=== PATIENT | male | born 1935 | race Caucasian/White ===

== ENCOUNTER 2018-05-14 11:43 | Inpatient (IN) | payer MEDICAID ==
[~2018-05-14] VITALS: Ht 152.4 cm; Wt 54.4 kg
[2018-05-14] VITALS (16 sets, daily range): BP systolic 66–134
--- NOTE | 2018-05-14 11:45 | NUR ---
RT NOTES 1145 TRACH PT CAME FROM [facility]. CHIEF COMPLAIN SOB. RT GOT REPORT FROM EMS VENT SETTINGS AC 16, VT 450, PEEP 5, 40% FIO2. SINCE PT FEELING SOB, ADJUSTED FIO2 TO 50%. WILL TITRATE FIO2 SOP2 GETS BETTER. WILL MONITOR PT.
--- NOTE | 2018-05-14 11:45 | NUR ---
Placed in room 1. Placed on director of cardiac cath lab, blood pressure machine and pulse oximeter. To gown for exam. Side rails up.
[2018-05-14] MEDS ORDERED: NACL 0.9% 1,000 ML IV ONE (11:49)
--- NOTE | 2018-05-14 11:50 | NUR ---
Pt brought in by ambulance, from [facility], presents to ED for sob. Per Paramedics, pt is nonverbal but alert. Patient has a trach inserted with a decreased O2 sat today. Pt's last well known time was this morning at 10:00. Upon arrival, pt's vent settings as follows: AC, RATE 16, TV 450, PEEP 5, FIO2 40%
--- NOTE | 2018-05-14 11:55 | NUR ---
ER Dr. Holden at bedside examining patient.
[2018-05-14] MEDS ORDERED: ONDANSETRON HCL 4 MG/2 ML VIAL IVP ONE (12:00)
[2018-05-14] MEDS ORDERED: MORPHINE 4 MG/ML INJ. SYRINGE IVP ONE (12:00)
[2018-05-14] MEDS ORDERED: CLINDAMYCIN 900 mg/50mL D5W 50 ML IV ONE (12:00)
[2018-05-14] MEDS ORDERED: VANCOMYCIN HCL 1,000 MG in D5W 250 ML IV ONE (12:00)
[2018-05-14] MEDS ORDERED: NS 1000 ML IV.SOLN IV ONE (12:00)
[2018-05-14 12:20] LABS: CHLORIDE 108 mmol/L (98-107); CREATININE 0.98 mg/dL (0.55-1.30); GLUCOSE 141 mg/dL (70-99); POTASSIUM 4.7 mmol/L (3.5-5.1); SODIUM SERUM 148 mmol/L (136-145); UREA NITROGEN, BLOOD 54 mg/dL (8-21)
--- NOTE | 2018-05-14 12:20 | NUR ---
# 16 FR Bailey catheter with use of sterile technique. Immediate return of 250 cc of yellow urine noted. Bedside drainage bag placed below level of bladder. Urine sample collected and sent to lab. Pt tolerated procedure well.
[2018-05-14 12:21] LABS: HEMOGLOBIN 9.4 g/dL (14.0-18.0); MEAN CORPUSCULAR HEMOGLOBIN 31 pg (27-31); MEAN CORPUSCULAR HGB CONC 32 % (32-36); MEAN CORPUSCULAR VOLUME 94 fL (79.0-98.0); PLATELET COUNT (AUTO) 394 K/uL (130-430); RED BLOOD CELL COUNT(AUTO) 3.08 MIL/uL (4.2-6.2)
[2018-05-14 12:23] LABS: INR 1.1 (0.80-1.20); PROTHROMBIN TIME 11.1 SECS (9.5-12.5); WHITE BLOOD COUNT (AUTO) 42.1 K/uL (4.8-10.8)
[2018-05-14 12:26] LABS: ALANINE AMINOTRANSFERASE 50 U/L (12-78); ALBUMIN 1.4 g/dL (3.4-4.8); AMYLASE 20 U/L (0-100); ASPARTATE AMINOTRANSFERASE 33 U/L (10-37); LIPASE 52 U/L (73-393); TOTAL BILIRUBIN 0.5 mg/dL (0.0-1.0)
[2018-05-14 12:29] LABS: ANION GAP < 3 (5-15); CALCIUM 14.4 mg/dL (8.4-11.0)
[2018-05-14 12:42] LABS: BAND % (MANUAL) 10 % (0-6); BASOPHILS % (MANUAL) 0 % (0-2); EOSINOPHILS % (MANUAL) 0 % (0-7); LYMPHOCYTES % (MANUAL) 1 % (20-46); MONOCYTES % (MANUAL) 4 % (0-11)
[2018-05-14 12:48] LABS: BILIRUBIN,URINE NEGATIVE (NEGATIVE); BLOOD, URINE NEGATIVE (NEGATIVE); COLOR,URINE YELLOW (YELLOW); GLUCOSE,URINE NEGATIVE (NEGATIVE); KETONES,URINE NEGATIVE (NEGATIVE); LEUKOCYTE ESTERASE ,URINE NEGATIVE (NEGATIVE); NITRITE, URINE NEGATIVE (NEGATIVE); PH,URINE 6.5 (5.0-8.0); PROTEIN URINE NEGATIVE (NEGATIVE); UROBILINOGEN,URINE 0.2 (0.2-1.0)
[2018-05-14 12:50] LABS: CLARITY/URINE CLEAR (CLEAR)
[2018-05-14] MEDS ORDERED: PAMIDRONATE DISODIUM 60 MG in NACL 0.9% 1,000 ML IV ONE (13:15)
[2018-05-14] MEDS ORDERED: ONDANSETRON HCL 4 MG/2 ML VIAL IVP PRN (13:15)
[2018-05-14] MEDS: VANCOMYCIN HCL 1,000 MG in NS 250 ML IV ONE ×2 (13:15→15:00)
--- NOTE | 2018-05-14 13:52 | NUR ---
Patient will be admitted to care of Dr. Walters. Admitted to ICU unit. Will go to room 7. Belongings list completed. Summary report printed. Report will be given at bedside. Transfer to ICU via ACLS protocol. Licensed nurse present. IV present no signs or symptoms of infiltration.
[2018-05-14] MEDS: IPRATROPIUM/ALBUTEROL SULFATE 3 ML AMPUL.NEB (DUONEB) INH SCH ×5 (14:00→23:50)
[2018-05-14] MEDS ORDERED: VANCOMYCIN HCL 1000 MG/VIAL IV ONE (14:04)
--- NOTE | 2018-05-14 14:10 | NUR ---
ICU admit Received pt from ER to ICU bed 7 via gurney. Pt obtunded on arrival and does not able to follow instructions. ST rate 102 on monitor. BP 120's at this time. Pt has a 7 portex trach to vent on AC 14 /459/40%/p5. 02 sats mid 80's on these settings. Pt has an open fleshy wound to left side of his neck. This is light pink/whitish in color with globs of fat.
--- NOTE | 2018-05-14 14:58 | NUR ---
CONSULTATION PAGED PRIORITY: ROUTINE REASON FOR CONSULTATION?:DECREASED RENAL FUNCTION WAS CONSULT CALLED:Y PERSON WHO WAS NOTIFIED:LISA CONSULTING PHYSICIAN:FRANCESCA OLIVEIRA DIRECTOR [employer] SPECIALTY:NEPHROLOGY DIRECTOR [employer] PHONE NUMBER:[phone]
[2018-05-14] MEDS: NACL 0.9% 1,000 ML IV SCH (15:00)
--- NOTE | 2018-05-14 15:21 | NUR ---
CONSULTATION PAGED PRIORITY: ROUTINE REASON FOR CONSULTATION?:PNEUMONIA,SEPSIS WAS CONSULT CALLED:Y PERSON WHO WAS NOTIFIED:PRESTON CONSULTING PHYSICIAN:MONET VARGAS BLISTER RUST ERADICATOR SPECIALTY:ID BLISTER RUST ERADICATOR PHONE NUMBER:[phone]
--- NOTE | 2018-05-14 15:26 | NUR ---
RT NOTES DECREASED RESPIRATORY TO 12. INCREASED FIO2 TO 55%. PER DR. LOPEZ. RN JESUS MANUEL MADE AWARE. WILL CONTINUE MONITORING.
--- NOTE | 2018-05-14 15:48 | NUR ---
IV SITE STARTED ON RIGHT FA, #20, SL, INTACT AND PATENT.
--- NOTE | 2018-05-14 17:41 | NUR ---
Sputum culture Spoke with Lab Med technologist regarding continued cancelling of sputum culture order that we enter. He looked into it and said they would order the test since there was a problem with [facility] self cancelling the test and they do not know why.
[2018-05-14] MEDS ORDERED: NOREPINEPHRINE 4 MG/4 ML VIAL IV ONE (17:51)
--- NOTE | 2018-05-14 18:00 | NUR ---
I witnessed Levophed started at 2mcg
--- NOTE | 2018-05-14 18:10 | NUR ---
I witnessed Levophed is increased to 4mcg
[2018-05-14] MEDS: PIPERACILLIN/TAZO 3.375 GM in NS 50 ML IV SCH (18:14)
[2018-05-14] MEDS: NOREPINEPHRINE BITARTRATE 4 MG in D5W 246 ML IV PRN (18:38)
--- NOTE | 2018-05-14 19:15 | NUR ---
BP 82/47. I witnessed Levophed is increased to 6mcg
--- NOTE | 2018-05-14 19:30 | NUR ---
Initial assessment Received patient in bed with eyes close, wont respond to any verbal or tactile stimuli. No respi distress noted. Patient on Trach/Vent, set as ordered. B/p at 101/60 with Levophed drip at 6mcg/min. Wound noted to neck with dark wound bed, small amount of serosanguinous fluid also noted. Multiple wounds noted scattered to yvette buttocks and sacrum, dressing intact. Fluid filled blister is also noted to L heel. Will closely monitor.
[2018-05-14] MEDS: FLUCONAZOLE 200 mg/ NS 100 ML IV SCH (20:12)
--- NOTE | 2018-05-14 22:15 | NUR ---
Midline inserted Shahriar RN inserted Midline. Order was to insert PICC line but chest part is block as per PICC nurse. R Midline was inserted instead.
[2018-05-15] VITALS (31 sets, daily range): BP systolic 91–141
[2018-05-15] MEDS: PIPERACILLIN/TAZO 3.375 GM in NS 50 ML IV SCH ×4 (00:13→18:48)
--- NOTE | 2018-05-15 01:00 | NUR ---
Malu care Patient had a small amount of soft stool, partial bed bath perform. Patient went back to sleep.
[2018-05-15] MEDS: IPRATROPIUM/ALBUTEROL SULFATE 3 ML AMPUL.NEB (DUONEB) INH SCH ×12 (01:54→22:00)
--- NOTE | 2018-05-15 04:15 | NUR ---
Change dressing to neck Change dressing to the neck with Stephanie RT. Tolerated well. Will cont to monitor.
[2018-05-15] MEDS ORDERED: NOREPINEPHRINE 4 MG/4 ML VIAL IV ONE (05:17)
[2018-05-15] MEDS: NOREPINEPHRINE BITARTRATE 4 MG in D5W 246 ML IV PRN ×2 (05:23→21:29)
[2018-05-15] MEDS: NACL 0.9% 1,000 ML IV SCH ×4 (05:29→21:25)
[2018-05-15 05:50] LABS: HEMATOCRIT 25.6 % (36-54); HEMOGLOBIN 8.1 g/dL (14.0-18.0); MEAN CORPUSCULAR HEMOGLOBIN 30 pg (27-31); MEAN CORPUSCULAR HGB CONC 32 % (32-36); MEAN CORPUSCULAR VOLUME 94 fL (79.0-98.0); PLATELET COUNT (AUTO) 323 K/uL (130-430); RED BLOOD CELL COUNT(AUTO) 2.72 MIL/uL (4.2-6.2); RED CELL DISTRIBUTION WIDTH 17.3 % (9.0-15.0)
--- NOTE | 2018-05-15 06:00 | NUR ---
AM care rendered AM care rendered and tolerated well. Patient went back to sleep.
[2018-05-15 06:11] LABS: ANION GAP 2 (5-15); CHLORIDE 113 mmol/L (98-107); CREATININE 0.91 mg/dL (0.55-1.30); GLUCOSE 127 mg/dL (70-99); POTASSIUM 3.8 mmol/L (3.5-5.1); SODIUM SERUM 152 mmol/L (136-145); UREA NITROGEN, BLOOD 39 mg/dL (8-21)
[2018-05-15 06:21] LABS: ALANINE AMINOTRANSFERASE 33 U/L (12-78); ALBUMIN 1.2 g/dL (3.4-4.8); ASPARTATE AMINOTRANSFERASE 22 U/L (10-37); TOTAL BILIRUBIN 0.6 mg/dL (0.0-1.0)
[2018-05-15 06:41] LABS: CALCIUM 13.2 mg/dL (8.4-11.0)
--- NOTE | 2018-05-15 07:20 | NUR ---
RN OPENING NOTES SBAR REPORT RECEIVED AT BEDSIDE BY ENDORSING NURSE. SEE VS FLOW SHEET
[2018-05-15 07:25] LABS: WHITE BLOOD COUNT (AUTO) 35.7 K/uL (4.8-10.8)
--- NOTE | 2018-05-15 07:25 | NUR ---
DR. LOPEZ AT BEDSIDE NEW ORDERS RECEIVED
--- NOTE | 2018-05-15 07:30 | NUR ---
Levophed witness Levophed infusing at 5 mcg/min on pump.
[2018-05-15 08:29] LABS: ATYPICAL LYMPHOCYTES % 0 % (0-0); BAND % (MANUAL) 8 % (0-6); BASOPHILS % (MANUAL) 0 % (0-2); EOSINOPHILS % (MANUAL) 0 % (0-7); LYMPHOCYTES % (MANUAL) 4 % (20-46); MONOCYTES % (MANUAL) 4 % (0-11)
--- NOTE | 2018-05-15 08:30 | NUR ---
DR. MOOER AT BEDSIDE NEW ORDERS RECEIVED
--- NOTE | 2018-05-15 09:00 | NUR ---
CHG BATH PROVIDED
[2018-05-15] MEDS: ENOXAPARIN SODIUM 40 MG/0.4 ML SYRINGE SUBCUT SCH (09:28)
[2018-05-15] MEDS: PANTOPRAZOLE GRANULES PACKET 40 MG GT SCH (09:29)
--- NOTE | 2018-05-15 09:30 | NUR ---
Levophed witness Levophed infusing at 3 mcg/min on pump.
--- NOTE | 2018-05-15 10:44 | NUR ---
Levophed Drip witness Levophed drip increased to 4mcgs/min.
--- NOTE | 2018-05-15 10:51 | NUR ---
Consults Dr. Hudson and Dr. Sow Consults called to both doctors above. Dr. Hudson ENT called back and questions answered. He indicated he didn't know what else he could really offer thept, but he would be in to see him tomorrow.
--- NOTE | 2018-05-15 10:53 | NUR ---
Called pts daughter, Kirstin regarding code status. She is on her way here and will talk to me then.
--- NOTE | 2018-05-15 11:25 | NUR ---
DR. IVY AT BEDSIDE
[2018-05-15] MEDS: VANCOMYCIN HCL 1 GM/NS PREMIX 250 ML IV SCH (12:04)
--- NOTE | 2018-05-15 12:10 | NUR ---
EDUCATION PT'S DAUGHTER, WHO IS A NURSE EDUCATOR, UPDATED ON PLAN OF CARE AT BEDSIDE. THE FAMILY'S GOALS FOR THE PT AND THE POSSIBILITY OF HOSPICE DISCUSSED WITH THE CHARGE NURSE.
[2018-05-15 13:10] LABS: BASOPHILS % (AUTO) 0.1 % (0.0-2.0); EOSINOPHILS % (AUTO) 0.1 % (0.0-4.0); HEMATOCRIT 24.6 % (36-54); HEMOGLOBIN 7.4 g/dL (14.0-18.0); LYMPHOCYTES # (AUTO) 0.4 K/uL (1.0-5.5); LYMPHOCYTES % (AUTO) 1.4 % (20.5-51.5); MEAN CORPUSCULAR HEMOGLOBIN 28 pg (27-31); MEAN CORPUSCULAR HGB CONC 30 % (32-36); MEAN CORPUSCULAR VOLUME 94 fL (79.0-98.0); MONOCYTES # (AUTO) 0.3 K/uL (0.0-1.0); MONOCYTES % (AUTO) 1.1 % (1.7-9.3); NEUTROPHILS # (AUTO) 30.8 K/uL (1.8-7.7); NEUTROPHILS % (AUTO) 97.3 % (40.0-70.0); PLATELET COUNT (AUTO) 277 K/uL (130-430); RED BLOOD CELL COUNT(AUTO) 2.61 MIL/uL (4.2-6.2); RED CELL DISTRIBUTION WIDTH 17.6 % (9.0-15.0)
[2018-05-15 13:17] LABS: WHITE BLOOD COUNT (AUTO) 31.5 K/uL (4.8-10.8)
[2018-05-15] MEDS ORDERED: DILTIAZEM HCL 25 MG/5 ML VIAL ONE (13:29)
--- NOTE | 2018-05-15 13:30 | NUR ---
A-FIB/CARDIZEM PUSH PT CONVERTED TO A-FIB. DR. MOORE CONTACTED, ORDERS RECEIVED INCLUDING AN INITIAL IVP OF CARDIZEM 10mg.
[2018-05-15] MEDS ORDERED: NS 500 ML IV ONE (13:45)
[2018-05-15 14:05] LABS: ALANINE AMINOTRANSFERASE 29 U/L (12-78); ALBUMIN 1.2 g/dL (3.4-4.8); ASPARTATE AMINOTRANSFERASE 19 U/L (10-37); CHLORIDE 115 mmol/L (98-107); CREATININE 0.89 mg/dL (0.55-1.30); GLUCOSE 126 mg/dL (70-99); POTASSIUM 3.4 mmol/L (3.5-5.1); SODIUM SERUM 151 mmol/L (136-145); TOTAL BILIRUBIN 0.7 mg/dL (0.0-1.0); UREA NITROGEN, BLOOD 36 mg/dL (8-21)
[2018-05-15 14:13] LABS: ANION GAP < 3 (5-15); CALCIUM 13.5 mg/dL (8.4-11.0)
[2018-05-15 14:20] LABS: TOTAL IRON BIND. CAPACITY 131 ug/dL (250-450)
[2018-05-15] MEDS ORDERED: DILTIAZEM HCL 25 MG/5 ML VIAL IVP ONE (15:30)
--- NOTE | 2018-05-15 17:00 | NUR ---
wound care/chg bath
--- NOTE | 2018-05-15 18:00 | NUR ---
H&H UPDATE TO DR. LINO MOST RECENT CBC INDICATED PT'S H&H DECREASED TO 7.1/24.6. NOTIFIED, NO NEW ORDERS.
[2018-05-15] MEDS: FLUCONAZOLE 200 mg/ NS 100 ML IV SCH (18:13)
[2018-05-15] MEDS: DILTIAZEM HCL 25 MG/5 ML VIAL IVP PRN (18:48)
--- NOTE | 2018-05-15 19:15 | NUR ---
ENDORSEMENT SBAR REPORT ENDORSED TO RECEIVING RN AT BEDSIDE.
--- NOTE | 2018-05-15 19:20 | NUR ---
OPENING NOTE Patient resting in the bed. No acute distress. Respiration even and unlabored. Trach intact to vent, AC=12, HH=778, FiO2=55%, PEEP=5. G-tube intact, patent, on Jevity 1.2 at 50ml/hr, tolerated well. HOB elevated. Skin warm and dry to touch. Midline intact to KAYLEY, no redness, no swelling, no drainage, covered with clean and dry transparent dressing, infusing Zosyn at this time. Darnell cath intact to TEODORO, no redness, no swelling, no drainage, covered with clean and dry dressing, on Levophed at 4mcg/min. F/C intact, drain gravity with yellow urine. Safety measure maintained. Bed locked in low position, side rails up. Call light within reached. Continue to monitor.
--- NOTE | 2018-05-15 20:30 | NUR ---
BP=85/40 Noted patient's BP=85/40, increased Levophed from 4mcg/min to 5mcg/min, witness by charge nurse Alexa. Patient resting in the bed. No acute distress. Trach intact to vent. G-tube intact, patent, no residual. Continue on G-tube feeding. HOB elevated. F/C intact, drain gravity. Safety measure maintained. Call light within reached. Bed locked in low position, side rails up. Continue to monitor.
--- NOTE | 2018-05-15 23:00 | NUR ---
ROUND Patient resting in the bed with eyes closed. No acute distress. Trach intact to vent. Midline intact, continue on IVF infusing well. Darnell cath intact and on Levophed infusing well. DF/C intact, drain gravity. Safety measure maintained. Call light within reached. Bed locked in low position, side rails up. Continue to monitor.
[2018-05-16] VITALS (33 sets, daily range): BP systolic 105–140
[2018-05-16] MEDS: PIPERACILLIN/TAZO 3.375 GM in NS 50 ML IV SCH ×5 (00:17→23:47)
[2018-05-16] MEDS: IPRATROPIUM/ALBUTEROL SULFATE 3 ML AMPUL.NEB (DUONEB) INH SCH ×6 (02:00→19:39)
--- NOTE | 2018-05-16 03:25 | NUR ---
ROUND Patient resting in the bed with eyes closed. No acute distress. Respiration even and unlabored. Trach intact to vent. Midline intact, continue on IVF infusing well. Darnell cath intact and on Levophed infusing well. F/C intact, drain gravity. Safety measure maintained. Call light within reached. Bed locked in low position, side rails up. Continue to monitor.
[2018-05-16] MEDS: NACL 0.9% 1,000 ML IV SCH (04:43)
[2018-05-16 06:46] LABS: ANION GAP 5 (5-15); CHLORIDE 117 mmol/L (98-107); CREATININE 0.82 mg/dL (0.55-1.30); GLUCOSE 153 mg/dL (70-99); SODIUM SERUM 155 mmol/L (136-145); UREA NITROGEN, BLOOD 31 mg/dL (8-21)
--- NOTE | 2018-05-16 06:50 | NUR ---
CLOSING NOTE Patient resting in the bed. No acute distress. Respiration even and unlabored. Trach intact to vent, AC=12, LS=351, FiO2=55%, PEEP=5. G-tube intact, patent, on Jevity 1.2 at 50ml/hr, tolerated well. HOB elevated. Skin warm and dry to touch. Midline intact to KAYLEY, no redness, no swelling, no drainage, covered with clean and dry transparent dressing. Darnell cath intact to TEODORO, no redness, no swelling, on Levophed at 5mcg/min. F/C intact, drain gravity with yellow urine. All needs met. Hourly rounding during shift. Safety measure maintained. Bed locked in low position, side rails up. Call light within reached. Will endorse to morning shift nurse.
[2018-05-16 07:02] LABS: ALANINE AMINOTRANSFERASE 31 U/L (12-78); ALBUMIN 1.1 g/dL (3.4-4.8); ASPARTATE AMINOTRANSFERASE 35 U/L (10-37); TOTAL BILIRUBIN 0.3 mg/dL (0.0-1.0)
--- NOTE | 2018-05-16 07:10 | NUR ---
OPENING NOTE: Received SBAR report at bedside from PM nurse. See VS flow sheet
--- NOTE | 2018-05-16 07:20 | NUR ---
REPORT GIVEN Hand off and report given to morning shift NIDHI Betts.
[2018-05-16 07:25] LABS: CALCIUM 12.9 mg/dL (8.4-11.0)
[2018-05-16] MEDS: DILTIAZEM HCL 25 MG/5 ML VIAL IVP PRN ×3 (07:54→17:27)
--- NOTE | 2018-05-16 08:04 | NUR ---
Nutrition Update Dustin Scale 11 noted. Pt admitted for pneumonia, sepsis Diet: tube feeding BMI: 23.4 kg/m2 RD to follow per nutrition care standards.
--- NOTE | 2018-05-16 08:30 | NUR ---
Dr. Gomes at bedside, new orders received
[2018-05-16 08:42] LABS: EOSINOPHILS % (AUTO) 0.1 % (0.0-4.0); HEMATOCRIT 24.7 % (36-54); HEMOGLOBIN 7.9 g/dL (14.0-18.0); LYMPHOCYTES # (AUTO) 0.5 K/uL (1.0-5.5); LYMPHOCYTES % (AUTO) 1.4 % (20.5-51.5); MEAN CORPUSCULAR HEMOGLOBIN 30 pg (27-31); MEAN CORPUSCULAR HGB CONC 32 % (32-36); MEAN CORPUSCULAR VOLUME 95 fL (79.0-98.0); MONOCYTES # (AUTO) 0.5 K/uL (0.0-1.0); MONOCYTES % (AUTO) 1.5 % (1.7-9.3); NEUTROPHILS # (AUTO) 31.8 K/uL (1.8-7.7); PLATELET COUNT (AUTO) 252 K/uL (130-430); RED BLOOD CELL COUNT(AUTO) 2.61 MIL/uL (4.2-6.2); RED CELL DISTRIBUTION WIDTH 17.3 % (9.0-15.0)
[2018-05-16 08:43] LABS: WHITE BLOOD COUNT (AUTO) 32.8 K/uL (4.8-10.8)
[2018-05-16] MEDS ORDERED: D5/0.45 NS 1,000 ML IV SCH (08:45)
[2018-05-16] MEDS ORDERED: NS 500 ML IV ONE (08:45)
--- NOTE | 2018-05-16 09:05 | NUR ---
EDUCATION: Dr. Armenta at bedside, called family, spoke with patient's daughter and educated her on plan of care and continued hospice discussion.
[2018-05-16] MEDS: ENOXAPARIN SODIUM 40 MG/0.4 ML SYRINGE SUBCUT SCH (09:14)
[2018-05-16] MEDS: AMIODARONE HCL 200 MG TABLET GT SCH ×2 (09:16→20:39)
[2018-05-16] MEDS: PANTOPRAZOLE GRANULES PACKET 40 MG GT SCH (09:16)
--- NOTE | 2018-05-16 09:30 | NUR ---
Dr. Abraham at bedside, new orders received.
--- NOTE | 2018-05-16 09:35 | NUR ---
DRIP RATE: Witnessed RN, change in Levophed drip rate to 4 mcg/min
[2018-05-16] MEDS ORDERED: POTASSIUM CHLORIDE 20 MEQ/PKT PACKET PO ONE (10:15)
[2018-05-16] MEDS: NOREPINEPHRINE BITARTRATE 4 MG in D5W 246 ML IV PRN (10:20)
--- NOTE | 2018-05-16 12:18 | NUR ---
Dietitian Recommendations *Recommend Pivot 1.5 at 40ml/hr, FWF 150ml Q 6 hours via GT. Provides: 1440 kcal, 90 gm protein and 1329ml/ free water. Meets: 99% of estimated calorie needs and 83% of upper end of estimated protein needs. *Recommend MVI QD. Please see Nutritional Assessment for details. NIDHI Miller and Alpesh made aware of RD rec. PHILLIP, RD
[2018-05-16 12:52] LABS: BASOPHILS # (AUTO) 0.1 K/uL (0.0-0.2); BASOPHILS % (AUTO) 0.2 % (0.0-2.0); HEMATOCRIT 25.1 % (36-54); LYMPHOCYTES # (AUTO) 0.4 K/uL (1.0-5.5); LYMPHOCYTES % (AUTO) 1.4 % (20.5-51.5); MEAN CORPUSCULAR HEMOGLOBIN 30 pg (27-31); MEAN CORPUSCULAR HGB CONC 32 % (32-36); MEAN CORPUSCULAR VOLUME 93 fL (79.0-98.0); MONOCYTES # (AUTO) 0.3 K/uL (0.0-1.0); NEUTROPHILS # (AUTO) 30.6 K/uL (1.8-7.7); PLATELET COUNT (AUTO) 285 K/uL (130-430); RED BLOOD CELL COUNT(AUTO) 2.69 MIL/uL (4.2-6.2); RED CELL DISTRIBUTION WIDTH 17.4 % (9.0-15.0)
[2018-05-16] MEDS: VANCOMYCIN HCL 1 GM/NS PREMIX 250 ML IV SCH (12:55)
[2018-05-16 13:07] LABS: ALANINE AMINOTRANSFERASE 30 U/L (12-78); ANION GAP 5 (5-15); ASPARTATE AMINOTRANSFERASE 23 U/L (10-37); CHLORIDE 117 mmol/L (98-107); CREATININE 0.72 mg/dL (0.55-1.30); GLUCOSE 198 mg/dL (70-99); POTASSIUM 3.1 mmol/L (3.5-5.1); SODIUM SERUM 152 mmol/L (136-145); TOTAL BILIRUBIN 0.3 mg/dL (0.0-1.0); UREA NITROGEN, BLOOD 30 mg/dL (8-21)
[2018-05-16 13:10] LABS: CALCIUM 12.5 mg/dL (8.4-11.0)
[2018-05-16 13:27] LABS: WHITE BLOOD COUNT (AUTO) 31.4 K/uL (4.8-10.8)
[2018-05-16 13:28] LABS: NEUTROPHILS % (AUTO) 97.4 % (40.0-70.0)
[2018-05-16] MEDS: HYDROCORTISONE SOD SUCC 100 MG/2 ML VIAL IVP SCH ×2 (14:54→22:45)
[2018-05-16] MEDS ORDERED: AMIODARONE HCL 200 MG TABLET PO ONE (15:00)
[2018-05-16] MEDS: D5W 1,000 ML IV SCH ×2 (15:20→22:45)
[2018-05-16] MEDS: FLUCONAZOLE 200 mg/ NS 100 ML IV SCH (18:47)
--- NOTE | 2018-05-16 19:24 | NUR ---
ENDORSEMENT: Gave SBAR report and endorsed plan of care to NIDHI Abrams
--- NOTE | 2018-05-16 20:15 | NUR ---
Pt facial grimacing noted. Called Dr. leavitt. New order given for pain relieve medication Morphine 1mg every 6 hours as needed. Verified six pt right's at bedside. unable to scan. Charge nurse was notified.
[2018-05-16] MEDS: MORPHINE 2 MG/ML INJ. SYRINGE ONE (20:41)
[2018-05-17] VITALS (35 sets, daily range): BP systolic 104–153
[2018-05-17] MEDS: IPRATROPIUM/ALBUTEROL SULFATE 3 ML AMPUL.NEB (DUONEB) INH SCH ×4 (00:16→19:39)
[2018-05-17] MEDS: D5W 1,000 ML IV SCH ×3 (06:05→22:09)
[2018-05-17] MEDS: HYDROCORTISONE SOD SUCC 100 MG/2 ML VIAL IVP SCH ×3 (06:05→21:06)
[2018-05-17] MEDS: PIPERACILLIN/TAZO 3.375 GM in NS 50 ML IV SCH ×3 (06:07→18:46)
[2018-05-17 07:03] LABS: ANION GAP 4 (5-15); CALCIUM 11.1 mg/dL (8.4-11.0); CHLORIDE 112 mmol/L (98-107); CREATININE 0.62 mg/dL (0.55-1.30); GLUCOSE 227 mg/dL (70-99); POTASSIUM 3.1 mmol/L (3.5-5.1); SODIUM SERUM 147 mmol/L (136-145); UREA NITROGEN, BLOOD 28 mg/dL (8-21)
--- NOTE | 2018-05-17 07:15 | NUR ---
AM ROUNDS: Report received from [facility] for continuation of care. No signs or symptoms of distress noted.
[2018-05-17 07:16] LABS: ALANINE AMINOTRANSFERASE 24 U/L (12-78); ALBUMIN 1.1 g/dL (3.4-4.8); ASPARTATE AMINOTRANSFERASE 19 U/L (10-37); TOTAL BILIRUBIN 0.3 mg/dL (0.0-1.0)
[2018-05-17 08:42] LABS: BASOPHILS # (AUTO) 0.1 K/uL (0.0-0.2); BASOPHILS % (AUTO) 0.3 % (0.0-2.0); EOSINOPHILS # (AUTO) 0.1 K/uL (0.0-0.4); EOSINOPHILS % (AUTO) 0.2 % (0.0-4.0); LYMPHOCYTES # (AUTO) 0.4 K/uL (1.0-5.5); LYMPHOCYTES % (AUTO) 1.3 % (20.5-51.5); MEAN CORPUSCULAR HEMOGLOBIN 30 pg (27-31); MEAN CORPUSCULAR HGB CONC 32 % (32-36); MEAN CORPUSCULAR VOLUME 94 fL (79.0-98.0); MONOCYTES # (AUTO) 0.2 K/uL (0.0-1.0); MONOCYTES % (AUTO) 0.8 % (1.7-9.3); NEUTROPHILS # (AUTO) 26.1 K/uL (1.8-7.7); PLATELET COUNT (AUTO) 214 K/uL (130-430); RED BLOOD CELL COUNT(AUTO) 2.29 MIL/uL (4.2-6.2); RED CELL DISTRIBUTION WIDTH 17.5 % (9.0-15.0); WHITE BLOOD COUNT (AUTO) 26.9 K/uL (4.8-10.8)
[2018-05-17] MEDS: ENOXAPARIN SODIUM 40 MG/0.4 ML SYRINGE SUBCUT SCH ×2 (09:00→09:03)
[2018-05-17 09:02] LABS: HEMATOCRIT 21.5 % (36-54); HEMOGLOBIN 6.9 g/dL (14.0-18.0)
[2018-05-17] MEDS: PANTOPRAZOLE GRANULES PACKET 40 MG GT SCH (09:03)
[2018-05-17] MEDS: AMIODARONE HCL 200 MG TABLET GT SCH ×2 (09:04→21:05)
[2018-05-17] MEDS: NOREPINEPHRINE BITARTRATE 4 MG in D5W 246 ML IV PRN (09:05)
--- NOTE | 2018-05-17 09:05 | NUR ---
PHONE CALL. PAGED DR Andra MOORE.
--- NOTE | 2018-05-17 09:30 | NUR ---
COMMUNICATION: Dr. Armenta is in the unit. Read critical labs, reported blood on oral care and blood in stool. Dr. Armenta verbalized understanding.
[2018-05-17] MEDS ORDERED: POTASSIUM CHLORIDE 20 MEQ/PKT PACKET PO ONE (10:00)
--- NOTE | 2018-05-17 10:00 | NUR ---
IV DRIP. LEVOPHED DRIP TITRATED TO 1 MCG/MIN, BLOOD PRESSURE 152/79, CONTINUE TO MONITOR.
--- NOTE | 2018-05-17 10:00 | NUR ---
IV RATE: Changed to 100mL/hr per Dr. Abraham's orders.
[2018-05-17] MEDS ORDERED: FUROSEMIDE 20 MG/2 ML VIAL IVP SCH (10:15)
--- NOTE | 2018-05-17 10:45 | NUR ---
CALLED DAUGHTER: Called Gaby at [phone] for blood transfusion consent. Left voicemail asking to call back.
--- NOTE | 2018-05-17 11:00 | NUR ---
IV DRIPS. LEVOPHED DRIP WITNESSED OFF AT THIS TIME.
--- NOTE | 2018-05-17 11:15 | NUR ---
SECOND CALL: To Gaby at [phone] for blood transfusion consent. Went straight to voicemail and left message.
[2018-05-17] MEDS: VANCOMYCIN HCL 1 GM/NS PREMIX 250 ML IV SCH (11:34)
[2018-05-17 12:22] LABS: NEUTROPHILS % (AUTO) 97.4 % (40.0-70.0)
--- NOTE | 2018-05-17 12:30 | NUR ---
Nutrition Consult Nutrition Consult received for wounds, TF on 05/17/18 1223. Pt was seen and assessed by RD on 05/16/18. Please refer to Nutrition Assessment for details.
--- NOTE | 2018-05-17 17:53 | NUR ---
WOUNDCARE: Was with woundcare men's custom hair piece consultant for 1.5 hours assisting.
--- NOTE | 2018-05-17 17:53 | NUR ---
WOUND EVALUATION: Late note for 1752 secondary to patient care. Wound Consult received from Dr. Armenta. Thank you, Dr. Armenta, for the consult. Patient received in a Jalen Bed with an IsoFlex FATEMEH mattress low air loss therapy initiated, awake, non-verbal, non-responsive to verbal commands. Patient is unable to turn in bed independently. Dustin Score is a 10. 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 Recent Labs: WBC 26.9, RBC 2.29, hemoglobin 6.9, hematocrit 21.5, sodium 147, potassium 3.1, chloride 112, BUN 28, creatinine 0.62, glucose 227, calcium 11.1, alkaline phosphatase 212, serum total protein 5.3, albumin 1.1, PTT 35.2, ABG pH 7.473, ABG PCO2 47.4, ABG PO2 54.0, ABG HCO3 34.0. Microbiology: Blood culture results 2 in progress. MRSA screen results negative. Tracheal aspirate culture in progress. Neck wound culture in progress. H&H is critical, and patient will have a blood transfusion today. Intrinsic factors that delay wound healing: Metastatic Head and Neck Cancer, Dysphagia, Chronic Obstructive Pulmonary Disease, chronic ventilator dependency, acute renal failure, anemia. Extrinsic factors that delay wound healing: Immobility. Per Dr. Walters's H&P: "This is an 82-year-old gentleman with unfortunate history of head and neck cancer, presents with LOC, shortness of breath, found to have bilateral infiltrates, leukocytosis, acute renal failure, hypercalcemia, hypernatremia, anemia, acute renal failure". 'Overall prognosis remains quite poor secondary to his multiorgan problem and multiple other comorbidities'. Per leak inspector consult: "Impression: 1. Metastatic throat cancer. 2. Hypercalcemia from metastatic throat cancer. 3. Respiratory failure. 4. Infiltrates, probable pneumonia. 5. Tumorlets skin neck, chest area. 6. Severe malnutrition. 7. Altered level of consciousness. 8. Hypernatremia. PLAN: This is a case with advanced cancer and this appears to be futile care. We will support him as much as we can. We will discuss with family. I recommend hospice." Wound Assessment: 1. Sacral coccygeal area: Unstageable pressure ulcer, present on admission. Wound bed has 90% black tissue, 10% yellow tissue. No odor, no drainage. Periwound and surrounding tissue has purple and black discoloration, wound may still be evolving. Wound measures 1.5 cm x 1.7 cm. Recommend: Cleanse wound with normal saline. Apply moisture barrier cream to malu-wound. Apply Venelex ointment onto wound bed. Cover with two non-adhesive foam dressings, then transparent dressings. Perform wound care daily, and as needed for dressing soiling or dislodgement. 2. Lower thoracic spine, superior wound: Unstageable pressure ulcer, present on admission. Wound bed has 90% yellow tissue, 10% red tissue. No odor, no drainage. Periwound and surrounding tissue has purple and black discoloration, wound may still be evolving. Wound measures 2.0 cm x 2.5 cm. 3. Lower thoracic spine, middle wound: Unstageable pressure ulcer, present on admission. Wound bed has 40% black tissue, 30% brown tissue, 25% pink tissue, 5% dark red tissue. No odor, no drainage. Periwound and surrounding tissue has purple and black discoloration, wound may still be evolving. Wound measures 9.0 cm x 14.5 cm. 4. Lower thoracic spine, inferior wound: Unstageable pressure ulcer, present on admission. Wound bed has 40% black tissue, 30% brown tissue, 25% pink tissue, 5% dark red tissue. No odor, no drainage. Periwound and surrounding tissue has purple and black discoloration, wound may still be evolving. Wound measures 9.0 cm x 14.5 cm. Recommend: Cleanse wounds with normal saline. Apply moisture barrier cream to malu-wounds. Apply Venelex ointment onto wound beds. Cover with two non-adhesive foam dressings, then transparent dressings. Perform wound care daily, and as needed for dressing soiling or dislodgement. 5. Right posterior and lateral trunk: Area of 90% brown in 10% pink discoloration, present on admission. No odor, no drainage. Recommend: Apply moisture barrier cream to involved areas. If soiled, gently cleanse areas (do not try to remove moisture barrier cream), pat dry, and apply another light application of moisture barrier cream. Perform site care 4 times a day, and as needed for soiling. 6. Mid thoracic spine, superior to wound 2: Area of blanchable red discoloration, present on admission. Site measures 1.9 cm x 0.4 cm. Recommend: Cleanse involved areas with normal saline. Pat dry. Apply moisture barrier cream to involved area. Cover with a foam dressing. If soiled, gently cleanse area (do not try to remove moisture barrier cream), pat dry, and apply another light application of moisture barrier cream. Perform site care daily, and as needed for dressing soiling or dislodgment. 7. Left lateral hip: Area of dark discoloration and pink scar tissue, present on admission. There appears to be 2 small areas that recently reopened, but are dry and can be covered completely by a thin layer of moisture barrier cream. A. Superior reopened scar tissue area: Site has 100% pink tissue. No odor, no drainage. Periwound intact measures 1.0 cm x 0.6 cm. B. Inferior reopened scar tissue area: Site has 100% red tissue. No odor, no drainage. Periwound intact measures 0.4 cm x 0.2 cm. Recommend: Cleanse involved areas with normal saline. Pat dry. Apply moisture barrier cream to involved areas. Cover with a foam dressing. If soiled, gently cleanse area (do not try to remove moisture barrier cream), pat dry, and apply another light application of moisture barrier cream. Perform site care daily, and as needed for dressing soiling or dislodgment. 8. Left buttock near ischial tuberosity: Area of red discoloration. There appears to be 3 small areas that are open, but are dry and can be covered completely by a thin layer of moisture barrier cream. Area measures 6.0 cm x 4.6 cm. A. Superior open area: Site has 100% red tissue. No odor, no drainage. Periwound intact. Measures 0.5 cm x 0.3 cm. B. Middle open area: Site has 100% red tissue. No odor, no drainage. Periwound intact measures 0.5 cm x 0.2 cm. C. Inferior open area: Site has 100% red tissue. No odor, no drainage. Periwound intact. Measures 0.3cm x 0.3 cm. Recommend: Cleanse involved areas with normal saline. Pat dry. Apply moisture barrier cream to involved areas. Cover with a foam dressing. If soiled, gently cleanse area (do not try to remove moisture barrier cream), pat dry, and apply another light application of moisture barrier cream. Perform site care daily, and as needed for dressing soiling or dislodgment. 9. Left posterior heel: Bulla, present on admission. Has 90% yellow discoloration, 10% pink discoloration. No odor, no drainage. Malu-bulla area intact. Recommend: Cover heel with foam dressing. Keep both heels in HeelLift boots. Check heel position in boots when repositioning patient to ensure that heels do not rub against boot. Remove boots for 1 hour and float heels with pillows once a shift. 10. Left lateral neck: Wound, present on admission. Wound bed has 100% yellow tissue. No odor, no drainage. Periwound intact. Surrounding tissue has multiple multiple small open areas, and hard black, scaly, crusty tissue. Wound measures 2.0 cm x 1.9 cm x 0.1 cm. Recommend: Cleanse wound with normal saline. Apply moisture barrier cream to malu-wound. Apply Venelex ointment onto open wound beds. Cover with non-adhesive foam dressing. Secure dressing with trach collar. Perform wound care daily, and as needed for dressing soiling or dislodgement. 11. Right lateral neck: Large, gaping wound, present on admission. Wound bed has 100% yellow tissue. No odor, no drainage. Periwound intact. Surrounding tissue has hard black, scaly, crusty tissue. Hard end feel upon measurement of depth of wound, but based upon depth, this wound probably extends into the cervical spine area. Wound measures 3.0 cm x 9.0 cm x 6.0 cm. Recommend: Cleanse wound with normal saline. Apply moisture barrier cream to malu-wound. Apply Venelex ointment into wound bed. Gently pack wound with 1/2 inch iodoform packing strip, ensuring not to pack deeply. Cover with non-adhesive foam dressing. Secure dressing with trach collar. Perform wound care daily, and as needed for dressing soiling or dislodgement. 12. Right upper extremity: 4+ pitting edema, with small-moderate serosanguineous drainage, and multiple areas of ecchymosis, present on admission. Large bulla formed on right forearm while patient was turned for wound care, with moderate serosanguineous drainage. 13. Left upper extremity: 2+ pitting edema, and multiple areas of ecchymosis, present on admission. Recommend: Cleanse involved areas with normal saline. Pat dry. Wrap extremities with clean chucks. Perform site care qshift, and as needed for gabe soiling. Elevate bilateral upper extremities with pillows at all times. Also recommend: Reposition patient [id number] only every hour with one pillow deep underneath trunk, and one pillow underneath pelvic area, and off-load pressure areas with pillows for pressure re-distribution. Offload, elevate and float bilateral heels with Heelift Boots. Perform skin care and monitor skin integrity Q shift. Use moisture barrier cream on buttocks and other moisture susceptible areas QID and as needed for soiling. Maintain patient on a low air-loss mattress.
--- NOTE | 2018-05-17 18:09 | NUR ---
BT INITIATION: Consent signed per Gaby, daughter agreeing to administration of blood. Blood has been type and crossmatched. Blood sent from blood bank. Information on unit of blood checked against patient wristband at bedside by two nurses. All information matches. Patient or responsible democrat informed of potential complications associated with blood transfusion. Informed of possible transfusion reaction symptoms. Aware of need to notify nurse at once of itching, shortness of breath, flushing, feeling of impending doom, or other symptoms not previously present. Vital signs taken within 5 minutes prior to initiation of transfusion. RN will remain with patient for first 15 minutes of transfusion at which time vital signs will be re-assessed.
[2018-05-17] MEDS: MORPHINE 4 MG/ML INJ. SYRINGE IVP PRN (18:10)
--- NOTE | 2018-05-17 19:10 | NUR ---
Opening Note: Received patient obtunded. Patient trach to vent. Vent settings: AC 12, TV 450, FIO2 55%, PEEP 5, saturating @ 98%. KAYLEY Midline infusing D5W @ 100mls/hr. PRBC tranfusing to KAYLEY PIV at 125mls/hr. Pt VSS. L upper chest port-a-cath access noted, on saline lock. Pt on tubefeeding, Pivot 1.5 via Gtube @ 40mls/hr, no residual noted. Pt on francisco, urine draining to gravity. Family at bedside, POC discussed. No distress noted. HOB elevated, call light within reach. Bed locked, in lowest position. Safety and aspiration precautions in place. Will continue to monitor.
--- NOTE | 2018-05-17 20:10 | NUR ---
Post Transfusion Pt received 1 x unit PRBC. Pt VSS, no reaction noted. Pt tolerated well.
[2018-05-17 23:29] LABS: HEMATOCRIT 25.7 % (36-54); HEMOGLOBIN 8.2 g/dL (14.0-18.0); MEAN CORPUSCULAR HEMOGLOBIN 29 pg (27-31); MEAN CORPUSCULAR HGB CONC 32 % (32-36); MEAN CORPUSCULAR VOLUME 89 fL (79.0-98.0); PLATELET COUNT (AUTO) 205 K/uL (130-430); RED BLOOD CELL COUNT(AUTO) 2.89 MIL/uL (4.2-6.2); RED CELL DISTRIBUTION WIDTH 20.2 % (9.0-15.0)
[2018-05-18] VITALS (36 sets, daily range): BP systolic 98–167
[2018-05-18] MEDS: IPRATROPIUM/ALBUTEROL SULFATE 3 ML AMPUL.NEB (DUONEB) INH SCH ×4 (00:08→19:45)
[2018-05-18 00:10] LABS: ATYPICAL LYMPHOCYTES % 0 % (0-0); BAND % (MANUAL) 3 % (0-6); BASOPHILS % (MANUAL) 0 % (0-2); EOSINOPHILS % (MANUAL) 0 % (0-7); LYMPHOCYTES % (MANUAL) 1 % (20-46); METAMYELOCYTES % 0 % (0-0); MONOCYTES % (MANUAL) 2 % (0-11); MYELOCYTES % 0 % (0-0)
[2018-05-18] MEDS: PIPERACILLIN/TAZO 3.375 GM in NS 50 ML IV SCH ×4 (00:14→18:12)
[2018-05-18] MEDS: MORPHINE 4 MG/ML INJ. SYRINGE IVP PRN ×2 (00:15→16:30)
--- NOTE | 2018-05-18 00:18 | NUR ---
RN Notes Patient VSS. IVF infusing well. Tubefeeding infusing @ 40mls/hr, no residual noted. Pain 7/10 per FLACC, medicated per MD orders. No sign of distress noted. Will continue to monitor.
--- NOTE | 2018-05-18 02:45 | NUR ---
RN Notes Patient VSS, breathing even and unlabored. No signs of pain or any discomfort. Will continue to monitor.
[2018-05-18] MEDS: D5W 1,000 ML IV SCH ×3 (04:35→10:49)
[2018-05-18] MEDS: HYDROCORTISONE SOD SUCC 100 MG/2 ML VIAL IVP SCH ×3 (05:08→22:16)
--- NOTE | 2018-05-18 06:51 | NUR ---
Dr. Armenta \ Dr. Armenta at bedside to see patient.
[2018-05-18 06:52] LABS: BASOPHILS % (AUTO) 0.1 % (0.0-2.0); EOSINOPHILS % (AUTO) 0.1 % (0.0-4.0); HEMATOCRIT 23.1 % (36-54); HEMOGLOBIN 7.7 g/dL (14.0-18.0); LYMPHOCYTES # (AUTO) 0.1 K/uL (1.0-5.5); LYMPHOCYTES % (AUTO) 0.6 % (20.5-51.5); MEAN CORPUSCULAR HEMOGLOBIN 29 pg (27-31); MEAN CORPUSCULAR HGB CONC 33 % (32-36); MEAN CORPUSCULAR VOLUME 88 fL (79.0-98.0); MONOCYTES # (AUTO) 0.2 K/uL (0.0-1.0); MONOCYTES % (AUTO) 0.9 % (1.7-9.3); NEUTROPHILS # (AUTO) 23.4 K/uL (1.8-7.7); NEUTROPHILS % (AUTO) 98.3 % (40.0-70.0); PLATELET COUNT (AUTO) 181 K/uL (130-430); RED BLOOD CELL COUNT(AUTO) 2.63 MIL/uL (4.2-6.2); RED CELL DISTRIBUTION WIDTH 20.3 % (9.0-15.0)
--- NOTE | 2018-05-18 06:52 | NUR ---
Closing Notes Patient VSS. No SOB or any discomfort. No distress noted. POC will be endorsed to day shift RN.
[2018-05-18 07:09] LABS: ANION GAP 4 (5-15); CALCIUM 10.3 mg/dL (8.4-11.0); CHLORIDE 107 mmol/L (98-107); CREATININE 0.54 mg/dL (0.55-1.30); GLUCOSE 168 mg/dL (70-99); POTASSIUM 3.8 mmol/L (3.5-5.1); SODIUM SERUM 142 mmol/L (136-145); UREA NITROGEN, BLOOD 25 mg/dL (8-21)
[2018-05-18 07:20] LABS: ALANINE AMINOTRANSFERASE 29 U/L (12-78); ALBUMIN 1.2 g/dL (3.4-4.8); ASPARTATE AMINOTRANSFERASE 22 U/L (10-37); TOTAL BILIRUBIN 0.3 mg/dL (0.0-1.0)
[2018-05-18 07:28] LABS: WHITE BLOOD COUNT (AUTO) 23.7 K/uL (4.8-10.8)
--- NOTE | 2018-05-18 07:40 | NUR ---
Am Assessment Pt in bed. obtunded. Pt is trach to vent. Vent settings: AC 12. TV 450. PEEP 5. FIO2 55%. SR shown on monitor. No s/s of distress noted. Pt has KAYLEY midline in place and KAYLEY IV 20g. SItes C/D/I. Pt has left upper chest pot-a-cath access. Bailey in place, draining yellow urine to gravity. Pt has g-tube in place. No residual noted. Bed locked in lowest position, safety precautions in place, HOB elevated, and call light in reach. Will continue to monitor.
--- NOTE | 2018-05-18 07:45 | NUR ---
Dr. Sow at bedside examining pt
--- NOTE | 2018-05-18 07:50 | NUR ---
Dr. Gomes at bedside examining pt
[2018-05-18] MEDS: COLISTIMETHATE SODIUM 150 MG VIAL INH SCH ×2 (08:20→19:58)
[2018-05-18] MEDS: AMIODARONE HCL 200 MG TABLET GT SCH ×2 (09:13→22:16)
[2018-05-18] MEDS: PANTOPRAZOLE GRANULES PACKET 40 MG GT SCH (09:13)
[2018-05-18] MEDS: BALSAM PERU/CASTOR OIL 60 GM OINT...G. TP SCH (09:14)
[2018-05-18] MEDS: ENOXAPARIN SODIUM 40 MG/0.4 ML SYRINGE SUBCUT SCH (09:14)
--- NOTE | 2018-05-18 09:30 | NUR ---
Dr. Abraham at bedside examining Pt
--- NOTE | 2018-05-18 09:47 | NUR ---
RT NOTES CHANGES FIO2 45% PER ORDER. NO ADVERSE REACTIONS NOTED. WILL CONTINUE MONITORING PT.
--- NOTE | 2018-05-18 14:12 | NUR ---
CALLED PAGED DR BRENNER WAS TOLD THAT DR STOCK WAS SAMPLE STITCHER. SPOKE WITH DON
--- NOTE | 2018-05-18 14:30 | NUR ---
CHG CHG given and linens changed. Wound care done. Pt tolerated well.
--- NOTE | 2018-05-18 14:37 | NUR ---
REPAGED PAGED DR JORDIN STOCK IS CROWN POUNCER SPOKE WITH DON
--- NOTE | 2018-05-18 17:21 | NUR ---
Paged for Dr. Viera regarding pt's elevated BP, spoke with exchange, waiting for call back.
--- NOTE | 2018-05-18 17:25 | NUR ---
called Spoke to Dr. Viera regarding Pt's increasing BP. Dr. Viera states, "I don't want to give any medications." No new orders received.
--- NOTE | 2018-05-18 19:27 | NUR ---
Endorsement Report given to oncoming nurse via SBAR approach at bedside. Pt in bed, no s/s of distress noted. VSS.
--- NOTE | 2018-05-18 20:00 | NUR ---
ASSESSMENT Pt non-verbal, response to tactile stimuli, by opening left eye and move arms. Pt trach to vent, tolerating current vent settings. Left chest portacath present. Right upper arm with Midline PICC. Dressing intact no redness or swelling noted @ site. Pt with foam dressing around base of neck. General edema present. Right arm weeping. Gastric tube leaking @ site. Heelift boots in use.
--- NOTE | 2018-05-18 20:00 | NUR ---
LUNGS Rhonchi clear with suctioning, left lung field with crackles.
[2018-05-19] VITALS (34 sets, daily range): BP systolic 95–135
[2018-05-19] MEDS: PIPERACILLIN/TAZO 3.375 GM in NS 50 ML IV SCH ×5 (00:52→23:21)
[2018-05-19] MEDS: IPRATROPIUM/ALBUTEROL SULFATE 3 ML AMPUL.NEB (DUONEB) INH SCH ×4 (01:46→20:00)
[2018-05-19] MEDS: D5W 1,000 ML IV SCH ×2 (01:53→19:58)
--- NOTE | 2018-05-19 05:00 | NUR ---
FEEDING G-tube feeding stopped. Large amount of feeding leaking around GT.
--- NOTE | 2018-05-19 05:00 | NUR ---
NECK DRESSING Pt medicated for pain, Morphine 1mg given prior to changing dressing. All foam dressing removed, packing also removed. Packing replaced right side of neck, and covered with foam dressing. Left side small bleeding wounds were covered with emulsion dressing and covered with foam dressing.
[2018-05-19 05:19] LABS: BASOPHILS # (AUTO) 0.1 K/uL (0.0-0.2); BASOPHILS % (AUTO) 0.3 % (0.0-2.0); HEMATOCRIT 22.4 % (36-54); HEMOGLOBIN 7.4 g/dL (14.0-18.0); LYMPHOCYTES # (AUTO) 0.2 K/uL (1.0-5.5); MEAN CORPUSCULAR HEMOGLOBIN 29 pg (27-31); MEAN CORPUSCULAR HGB CONC 33 % (32-36); MEAN CORPUSCULAR VOLUME 89 fL (79.0-98.0); MONOCYTES # (AUTO) 0.2 K/uL (0.0-1.0); MONOCYTES % (AUTO) 0.8 % (1.7-9.3); NEUTROPHILS # (AUTO) 23.1 K/uL (1.8-7.7); NEUTROPHILS % (AUTO) 97.9 % (40.0-70.0); PLATELET COUNT (AUTO) 175 K/uL (130-430); RED BLOOD CELL COUNT(AUTO) 2.53 MIL/uL (4.2-6.2); RED CELL DISTRIBUTION WIDTH 19.4 % (9.0-15.0); WHITE BLOOD COUNT (AUTO) 23.6 K/uL (4.8-10.8)
[2018-05-19 05:51] LABS: ANION GAP 1 (5-15); CALCIUM 10.1 mg/dL (8.4-11.0); CHLORIDE 108 mmol/L (98-107); CREATININE 0.51 mg/dL (0.55-1.30); GLUCOSE 134 mg/dL (70-99); POTASSIUM 3.9 mmol/L (3.5-5.1); SODIUM SERUM 142 mmol/L (136-145); UREA NITROGEN, BLOOD 24 mg/dL (8-21)
[2018-05-19] MEDS: HYDROCORTISONE SOD SUCC 100 MG/2 ML VIAL IVP SCH ×2 (05:54→20:55)
[2018-05-19] MEDS: MORPHINE 4 MG/ML INJ. SYRINGE IVP PRN ×2 (05:55→17:17)
--- NOTE | 2018-05-19 07:40 | NUR ---
AM Assessment Pt in bed. Lethargic. Pt is trach to vent. Vent settings: AC 12. TV 450. PEEP 5. FIO2 45%. SR shown on monitor. No s/s of distress noted. Pt has KAYLEY midline in place. Weeping noted on right arm. Sites C/D/I. Pt has left upper chest pot-a-cath access. Bailey in place, draining yellow urine to gravity. Pt has g-tube in place. No residual noted. G-tube feeding stopped @0500 d/t leaking at site. Bed locked in lowest position, safety precautions in place, HOB elevated, and call light in reach. Will continue to monitor.
--- NOTE | 2018-05-19 07:51 | NUR ---
RT NOTES Colistin is not available at this time pharmacist Mark Anthony and NIDIH Montano made aware. Per pharmacist, med will be available after 929.
--- NOTE | 2018-05-19 08:10 | NUR ---
Dr. Gomes at bedside examined Pt. No new orders noted.
--- NOTE | 2018-05-19 08:30 | NUR ---
Dr. Armenta at bedside examining Pt. Made aware of large leaking at G-Tube site. No new orders noted.
[2018-05-19] MEDS: AMIODARONE HCL 200 MG TABLET GT SCH ×2 (09:09→20:55)
[2018-05-19] MEDS: PANTOPRAZOLE GRANULES PACKET 40 MG GT SCH (09:09)
[2018-05-19] MEDS: BALSAM PERU/CASTOR OIL 60 GM OINT...G. TP SCH (09:10)
--- NOTE | 2018-05-19 09:10 | NUR ---
Dr. Abraham at bedside examined Pt. No new orders noted.
[2018-05-19] MEDS: ENOXAPARIN SODIUM 40 MG/0.4 ML SYRINGE SUBCUT SCH (09:11)
[2018-05-19] MEDS: COLISTIMETHATE SODIUM 150 MG VIAL INH SCH ×2 (09:45→21:31)
--- NOTE | 2018-05-19 12:00 | NUR ---
Tube feeding Restarted Tube feeding. NO residual noted. no leaking from G-tube site. Will continue to monitor for leakage.
--- NOTE | 2018-05-19 13:18 | NUR ---
RT NOTES: PER DR. ALDANA ORDER CHANGE VENT SETTINGS FIO2 40%.
--- NOTE | 2018-05-19 14:30 | NUR ---
Tube feeding Pt tolerating well. No residual noted. No leakage from G-tube site.
--- NOTE | 2018-05-19 15:45 | NUR ---
CHG CHG was done and linens were changed. Wound care done. Pt tolerated well.
--- NOTE | 2018-05-19 16:00 | NUR ---
Tube feeding stopped due to leaking from site. No residual noted.
--- NOTE | 2018-05-19 18:21 | NUR ---
Nutrition F/U Admitting Diagnosis Pneumonia, Sepsis Reviewed Pertinent Medical/Surgical Hx Medical Record Patient Primary RN Medical History Comment: PMH: H/O head and neck cancer, S/P radiation, chemo, S/P tach, S/P chemo and radiation, H/O GT placement for dysphagia, H/O COPD per MD notes. Pt found w/: LOC, shortness of breath, Bilateral Infiltrates, Leukocytosis, ARF, Hypercalcemia, Hypernatremia, anemia per MD notes. 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 TF bag seen hanging but not infusing at time of RD visit earlier today. Per RN, pt's TF was held this morning at 0500 d/t leakage around GT site. He stated that TF was resumed at 1200 today, and that no leakage was found at 1400 today. No residuals noted either. Per EMR, TF Intakes: 400 ml 05/19/18. Residuals: 0 ml 05/19/18. Last BM x2 05/18/18. Abd is soft w/ active bowel sounds. I/O: 410/350 (+60 ml) per 12 hours. Current TF regimen continues appropriate and adequate. Current Diet Order/Nutrition Support Pivot 1.5 at 40 ml/hr, Free Water Flush: 200 Q4 via GT x3 days Patient/Significant Other Unable To Verbalize Education Provided Not Indicated Pertinent Medications solu-cortef, piperacillin/tazobactam IV Pertinent Labs Na 142 WNL, K 3.9 L, BG 134 H, BUN 24 H, ALB 1.2 L, H/H 7.4 L/22.4 L, WBC 23.6 H Height (Feet) 5 feet Height (Inches) 0.00 inches Weight (Pounds) 120 pounds (05/16/18) Weight (Calculated Kilograms) 54.694442 kilograms Patient Weight 54.431 kg Body Mass Index 23.43 kg/m2 %IBW 120 [place]/Adjusted Body Weight 100 lb, 45 kg Weight Status Appropriate Difficulty With: Swallowing Food Allergies unknown Usual Diet At Home Jevity 1.5 at50ml x 20 hrs, Prostat QD, FWF 20ml Q1hr via GT per hard chart Skin Integrity Comment: Dustin scale: 11; per [facility] note 05/17/18: 1. Sacral coccygeal area: Unstageable pressure ulcer, present on admission. 2. Lower thoracic spine, superior wound: Unstageable pressure ulcer, present on admission. 3. Lower thoracic spine, middle wound: Unstageable pressure ulcer, present on admission. 4. Lower thoracic spine, inferior wound: Unstageable pressure ulcer, present on admission. 5. Right posterior and lateral trunk: Area of 90% brown in 10% pink discoloration, present on admission. 6. Mid thoracic spine, superior to wound 2: Area of blanchable red discoloration, present on admission. 7. Left lateral hip: Area of dark discoloration and pink scar tissue, present on admission. A. Superior reopened scar tissue area: Site has 100% pink tissue. No odor, no drainage. B. Inferior reopened scar tissue area: Site has 100% red tissue. No odor, no drainage. 8. Left buttock near ischial tuberosity: Area of red discoloration. A. Superior open area: Site has 100% red tissue. No odor, no drainage. B. Middle open area: Site has 100% red tissue. No odor, no drainage. Periwound intact measures 0.5 cm x 0.2 cm. C. Inferior open area: Site has 100% red tissue. No odor, no drainage. Periwound intact. 9. Left posterior heel: [place], present on admission. 10. Left lateral neck: Wound, present on admission. 11. Right lateral neck: Large, gaping wound, present on admission. 12. Right upper extremity: 4+ pitting edema, with small-moderate serosanguineous drainage, and multiple areas of ecchymosis, present on admission. 13. Left upper extremity: 2+ pitting edema, and multiple areas of ecchymosis, present on admission. Current % PO N/A on EN support NEW Estimated Energy Expenditure (kcals/day) 1336 kcal/day (PSU [id number] for vent support/critical illness) Estimated Protein Required (g/day) 32-108 gm/day (.6-2 gm/kg CBW for Renal Dz predialysis and Sepsis) Estimated Fluid Required (l/day) Per MD (ARF) Problem/Etiology/Signs/Symptoms Increased nutritional needs related to metabolic demands as evidenced by estimated calorie and protein needs for sepsis and wound healing. *ongoing Expected Outcomes/Goals Monitor tolerance to EN support w/ goal of pt meeting at least 75% of estimated nutritional needs, labs trending WNL, normal GI function, skin integrity/wt maintenance. Dietitian Recommendations * Recommend continuing Pivot 1.5 at 40 ml/hr, Free Water Flush: 200 Q4 via GT Provides: 1440 kcal/day, 90 gm protein/day, and 1329 ml free water/day Meets: 108% of estimated calorie needs and 83% of upper end of estimated protein needs *Recommend MVI QD Follow Up High Risk: F/U in 2-3 days
--- NOTE | 2018-05-19 18:32 | NUR ---
Dietitian Recommendations * Recommend continuing Pivot 1.5 at 40 ml/hr, Free Water Flush: 200 Q4 via GT Provides: 1440 kcal/day, 90 gm protein/day, and 1329 ml free water/day Meets: 108% of estimated calorie needs and 83% of upper end of estimated protein needs LP, RD Please refer to Nutrition F/U for details.
--- NOTE | 2018-05-19 19:20 | NUR ---
Endorsement Report given to oncoming nurse at bedside via SBAR approach. No s/s of distress noted.
--- NOTE | 2018-05-19 19:30 | NUR ---
PM ASSESSMENT REPORT RECEIVED FROM HENRRY TERRELL. PT RECEIVED IN BED WITH EYES CLOSED, NON-VERBAL, RESPONDING TO TACTILE STIMULATION. PT TRACH TO VENT, VENT SETTINGS: AC 12, TV 450, FIO2 40%, PEEP 5. SR ON MONITOR. KAYLEY MIDLINE IN PLACE INFUSING D5W @ 60 CC/HR. LT UPPER CHEST PORT A CATH IN PLACE, SL. G-TUBE IN PLACE, TUBEFEEDING TURNED OFF AT THIS TIME PER AM NURSE GTUBE SITE LEAKING. POWELL CATH IN PLACE DRAINING YELLOW URINE TO GRAVITY. VSS, NO S/S OF ACUTE DISTRESS NOTED. HOB ELEVATED, BED IN LOWEST POSITION, CALL LIGHT IN REACH. WILL CONTINUE TO MONITOR PT.
--- NOTE | 2018-05-19 19:50 | NUR ---
MD ROUNDS DR. NARVAEZ AT BEDSIDE TO EVALUATE PT. NO NEW ORDERS RECEIVED AT THIS TIME.
--- NOTE | 2018-05-19 23:45 | NUR ---
TUBEFEEDING RESTARTED TUBEFEEDING RESTARTED AT THIS TIME. GTUBE SITE FLUSHING WELL, NO LEAKAGE NOTED AT THIS TIME. WILL CONTINUE TO MONITOR SITE.
[2018-05-20] VITALS (34 sets, daily range): BP systolic 94–142
[2018-05-20] MEDS: IPRATROPIUM/ALBUTEROL SULFATE 3 ML AMPUL.NEB (DUONEB) INH SCH ×4 (01:16→20:18)
--- NOTE | 2018-05-20 02:46 | NUR ---
BEDSIDE REPORT GIVEN TO BRUCE RN TO ASSUME CARE AT THIS TIME.
--- NOTE | 2018-05-20 04:10 | NUR ---
TUBEFEEDING Tubefeeding put on hold at this time. Large amount of leakage from GTUBE noted. Addendum: 05/20/18 at 0626 by Eris Richard RN H20 Flush of 200 cc/hr held as well.
[2018-05-20] MEDS: PIPERACILLIN/TAZO 3.375 GM in NS 50 ML IV SCH ×3 (05:44→18:00)
[2018-05-20 06:50] LABS: ANION GAP 2 (5-15); CALCIUM 10.6 mg/dL (8.4-11.0); CHLORIDE 105 mmol/L (98-107); CREATININE 0.56 mg/dL (0.55-1.30); GLUCOSE 114 mg/dL (70-99); POTASSIUM 3.3 mmol/L (3.5-5.1); SODIUM SERUM 140 mmol/L (136-145); UREA NITROGEN, BLOOD 18 mg/dL (8-21)
[2018-05-20 07:04] LABS: RED BLOOD CELL COUNT(AUTO) 2.55 MIL/uL (4.2-6.2)
[2018-05-20 07:05] LABS: BASOPHILS % (AUTO) 0.1 % (0.0-2.0); EOSINOPHILS % (AUTO) 0.1 % (0.0-4.0); HEMATOCRIT 22.4 % (36-54); HEMOGLOBIN 7.6 g/dL (14.0-18.0); LYMPHOCYTES # (AUTO) 0.2 K/uL (1.0-5.5); LYMPHOCYTES % (AUTO) 1.4 % (20.5-51.5); MEAN CORPUSCULAR HEMOGLOBIN 30 pg (27-31); MEAN CORPUSCULAR HGB CONC 34 % (32-36); MEAN CORPUSCULAR VOLUME 88 fL (79.0-98.0); MONOCYTES # (AUTO) 0.2 K/uL (0.0-1.0); MONOCYTES % (AUTO) 1.1 % (1.7-9.3); NEUTROPHILS # (AUTO) 16.6 K/uL (1.8-7.7); NEUTROPHILS % (AUTO) 97.3 % (40.0-70.0); PLATELET COUNT (AUTO) 163 K/uL (130-430); RED CELL DISTRIBUTION WIDTH 19.1 % (9.0-15.0)
[2018-05-20] MEDS: COLISTIMETHATE SODIUM 150 MG VIAL INH SCH ×2 (07:21→20:18)
--- NOTE | 2018-05-20 07:30 | NUR ---
ENDORSEMENT Report given to Josephine TERRELL using SBAR format. Pt in bed w/ eyes closed, no signs of acute distress or discomfort noted.
--- NOTE | 2018-05-20 07:35 | NUR ---
AM ASSESSMENT Pt received laying in bed with eyes closed. Pt is awaken to tactile stimulation. Pt has a trach connected to vent with settings of AC 16, TV450, FiO2 40%, PEEP 5. Pt connected to monitor with oxygen saturation of 98% on room monitor with sinus rhythm. Right upper arm Midline infusing D5W @ 60 cc/hr. Right lower arm purple discolored with a gabe beneath due to weeping. Bailey cath in place draining yellow urine to gravity. Bilateral heel boots in place. Be in lowest position with HOB greater than 35 degrees. No signs of acute distress or acute injury. Isolation precautions observed, will continue to monitor. Addendum: 05/20/18 at 1756 by Josephine Ford RN AC rate 12
[2018-05-20] MEDS ORDERED: POTASSIUM CHLORIDE 20 MEQ/PKT PACKET PO ONE (08:15)
--- NOTE | 2018-05-20 08:47 | NUR ---
Consult: consulted MD Storm for G-tube leaking, s/w Darlene answering services.
[2018-05-20] MEDS: PANTOPRAZOLE GRANULES PACKET 40 MG GT SCH (09:38)
[2018-05-20] MEDS: AMIODARONE HCL 200 MG TABLET GT SCH ×2 (09:38→21:04)
[2018-05-20] MEDS: HYDROCORTISONE SOD SUCC 100 MG/2 ML VIAL IVP SCH ×2 (09:38→21:04)
[2018-05-20] MEDS: ENOXAPARIN SODIUM 40 MG/0.4 ML SYRINGE SUBCUT SCH (09:39)
[2018-05-20] MEDS: BALSAM PERU/CASTOR OIL 60 GM OINT...G. TP SCH (09:40)
--- NOTE | 2018-05-20 10:00 | NUR ---
CHG Pt provided CHG, pt received new gown with partial linen change.
[2018-05-20] MEDS: MORPHINE 4 MG/ML INJ. SYRINGE IVP PRN (10:22)
--- NOTE | 2018-05-20 10:30 | NUR ---
Wound Care Pt provided wound care per wound care orders. Medicated prior to wound care treatment. Pt tolerated well, will continue to monitor.
[2018-05-20] MEDS: D5W 1,000 ML IV SCH (12:28)
[2018-05-20] MEDS: KCL 10 mEq in D5/0.45NS 1000mL 1,000 ML IV SCH (15:28)
--- NOTE | 2018-05-20 15:30 | NUR ---
G-Tube Dr. Storm bedside, replaced G-Tube with 22 Fr. Feeding held until confirmation of placement. Pt tolerated well. Will continue to monitor.
[2018-05-20] MEDS ORDERED: DIATR MEGLU/DIATRIZ SOD 30 ML SOLUTION PO ONE (16:13)
--- NOTE | 2018-05-20 17:56 | NUR ---
Tube feeding Tube Feeding restarted. Confirmation xray received.
--- NOTE | 2018-05-20 19:19 | NUR ---
Closing Notes Pt endorsed to Eris TERRELL using SBAR. Vital signs stable.
--- NOTE | 2018-05-20 19:30 | NUR ---
PM ASSESSMENT Pt received in bed w/ eyes closed, non-verbal but responding to tactile stimuli. No signs of acute distress or discomfort noted. VSS w/ SR seen on the monitor. Pt is trach to vent w/ vent settings: AC 12, TV 450, FiO2 40% and PEEP of 5, tolerating well w/ O2 sats @ 98%. Pt has a KAYLEY midline infusing D5 1/2 NS w/ 10 MeQ KCL @ 70 cc/hr. Midline dressing c/d/i. Gtube noted infusing tubefeeding Pivot 1.5. Bailey catheter in place draining urine to gravity. Bilateral heel boots in place. Isolation precautions observed. Bed is locked and in lowest position, call light w/in reach, will continue to monitor.
--- NOTE | 2018-05-20 20:12 | NUR ---
TUBEFEEDING/GTUBE Gtube was noted to be leaking. Tubefeeding put on hold at this time, will continue to monitor.
[2018-05-21] VITALS (31 sets, daily range): BP systolic 107–142
[2018-05-21] MEDS: PIPERACILLIN/TAZO 3.375 GM in NS 50 ML IV SCH ×2
--- NOTE | 2018-05-21 00:10 | NUR ---
TUBEFEEDING Tubefeeding restarted. Will continue to monitor pt and gtube.
[2018-05-21] MEDS: IPRATROPIUM/ALBUTEROL SULFATE 3 ML AMPUL.NEB (DUONEB) INH SCH ×4 (02:43→19:36)
[2018-05-21] MEDS: KCL 10 mEq in D5/0.45NS 1000mL 1,000 ML IV SCH ×2 (03:33→18:21)
--- NOTE | 2018-05-21 04:10 | NUR ---
RN ROUNDS Pt in bed w/ eyes closed, responding to tactile stimuli. No signs of acute distress or discomfort noted. VSS w/ SR seen on the monitor. Pt vent settings: AC 12, TV 450, FiO2 40% and PEEP of 5, tolerating well w/ O2 sats @ 96%. Pt has a KAYLEY midline infusing D5 1/2 NS w/ 10 MeQ KCL @ 70 cc/hr. Midline dressing c/d/i. Gtube noted infusing tubefeeding Pivot 1.5. Isolation precautions observed. Pt had a bowel movement at this time. Malu care performed and pt tolerated well. Bed is locked and in lowest position, call light w/in reach, will continue to monitor.
--- NOTE | 2018-05-21 07:15 | NUR ---
ENDORSEMENT Report given to Justin TERRELL using sbar format. Pt in bed w/ eyes closed. No signs of acute distress or discomfort noted.
--- NOTE | 2018-05-21 07:25 | NUR ---
AM ASSESSMENT Pt received laying in bed with eyes closed, pt does not open eyes to verbal stimuli. Pt has a trach connected to vent with the settings AC 12, TV 450, FiO2 40, PEEP 5 with 97% saturation on the monitor.Right upper arm Mid-line infusing D51/2NS+10mEq K @ 70 cc/hr. Pt has 22Fr G-tube administering Pivot @ 40 cc/hr. Pt has a francisco cath in place draining yellow urine to gravity. Bilateral heel boots in place. No signs of acute distress or injury, will continue to monitor. Isolation precautions observed.
[2018-05-21 07:30] LABS: BASOPHILS # (AUTO) 0.1 K/uL (0.0-0.2); EOSINOPHILS % (AUTO) 0.1 % (0.0-4.0); HEMATOCRIT 25.5 % (36-54); HEMOGLOBIN 7.9 g/dL (14.0-18.0); LYMPHOCYTES # (AUTO) 0.3 K/uL (1.0-5.5); LYMPHOCYTES % (AUTO) 1.9 % (20.5-51.5); MEAN CORPUSCULAR HEMOGLOBIN 28 pg (27-31); MEAN CORPUSCULAR HGB CONC 31 % (32-36); MEAN CORPUSCULAR VOLUME 90 fL (79.0-98.0); MONOCYTES # (AUTO) 0.1 K/uL (0.0-1.0); MONOCYTES % (AUTO) 0.5 % (1.7-9.3); NEUTROPHILS # (AUTO) 13.7 K/uL (1.8-7.7); NEUTROPHILS % (AUTO) 96.5 % (40.0-70.0); PLATELET COUNT (AUTO) 136 K/uL (130-430); RED BLOOD CELL COUNT(AUTO) 2.85 MIL/uL (4.2-6.2); WHITE BLOOD COUNT (AUTO) 14.2 K/uL (4.8-10.8)
[2018-05-21 07:44] LABS: ALANINE AMINOTRANSFERASE 30 U/L (12-78); ALBUMIN 1.1 g/dL (3.4-4.8); ANION GAP 3 (5-15); ASPARTATE AMINOTRANSFERASE 37 U/L (10-37); CALCIUM 10.7 mg/dL (8.4-11.0); CHLORIDE 105 mmol/L (98-107); CREATININE 0.45 mg/dL (0.55-1.30); GLUCOSE 115 mg/dL (70-99); POTASSIUM 3.7 mmol/L (3.5-5.1); SODIUM SERUM 139 mmol/L (136-145); TOTAL BILIRUBIN 0.4 mg/dL (0.0-1.0); UREA NITROGEN, BLOOD 14 mg/dL (8-21)
[2018-05-21] MEDS: COLISTIMETHATE SODIUM 150 MG VIAL INH SCH ×2 (08:00→19:36)
[2018-05-21] MEDS: HYDROCORTISONE SOD SUCC 100 MG/2 ML VIAL IVP SCH ×2 (08:36→20:22)
[2018-05-21] MEDS: PANTOPRAZOLE GRANULES PACKET 40 MG GT SCH (08:37)
[2018-05-21] MEDS: AMIODARONE HCL 200 MG TABLET GT SCH ×2 (08:37→20:22)
[2018-05-21] MEDS: ENOXAPARIN SODIUM 40 MG/0.4 ML SYRINGE SUBCUT SCH (08:38)
[2018-05-21] MEDS: BALSAM PERU/CASTOR OIL 60 GM OINT...G. TP SCH (08:39)
--- NOTE | 2018-05-21 10:15 | NUR ---
MD Dr. Alex at bedside with pt.
--- NOTE | 2018-05-21 10:48 | NUR ---
General Purchasing Agent - Erwin Sifuentes General Purchasing Agent from [employer] called to inquire on pt's current condition.
--- NOTE | 2018-05-21 11:00 | NUR ---
Wound Care Wound care provided to pt per wound care protocol. Pt medicated prior to wound care. Pt tolerated well. Isolation precautions observed during wound care, will continue to monitor.
[2018-05-21] MEDS: MORPHINE 4 MG/ML INJ. SYRINGE IVP PRN (11:01)
--- NOTE | 2018-05-21 11:21 | NUR ---
PAGE OUT FOR DR MOORE. S/W SERA.
--- NOTE | 2018-05-21 11:30 | NUR ---
CHG CHG given to pt, new linen provided to pt. Will continue to monitor.
--- NOTE | 2018-05-21 12:10 | NUR ---
PICC LINE Right upper arm Mid-Line dressing changed, sterile procedure protocol observed. Pt tolerated well.
[2018-05-21] MEDS: FUROSEMIDE 40 MG/4 ML VIAL IVP SCH (12:15)
[2018-05-21] MEDS ORDERED: FUROSEMIDE 40 MG/4 ML VIAL IVP ONE (12:30)
--- NOTE | 2018-05-21 14:29 | NUR ---
PAGE OUT FOR DR MOORE. S/W SERA.
--- NOTE | 2018-05-21 14:35 | NUR ---
PAGE OUT FOR DR MADSEN. S/W LINDSEY.
--- NOTE | 2018-05-21 14:38 | NUR ---
MD DR. Dubois made aware of the G-tube that is still leaking. No new orders received, MD will see pt tomorrow.
--- NOTE | 2018-05-21 18:14 | NUR ---
MD Dr. Walters called back. New orders received.
--- NOTE | 2018-05-21 19:13 | NUR ---
Closing Notes Pt endorsed to Mary Beth TERRELL using SBAR. Vital signs stable. Isolation precautions observed during shift.
--- NOTE | 2018-05-21 19:15 | NUR ---
Opening Note: Received patient awake and alert. Patient trach to vent. Vent settings: AC 12, TV 450, FIO2 55%, PEEP 5, saturating @ 99%. KAYLEY Midline infusing D5W 1/2NS + 10mEq KCL @ 70mls/hr. Pt VSS. L upper chest port-a-cath access noted, on saline lock. Pt on tubefeeding, Pivot 1.5 via Gtube @ 40mls/hr, no residual noted. Pt on francisco, urine draining to gravity. POC discussed. No distress noted. HOB elevated, call light within reach. Bed locked, in lowest position. Safety and aspiration precautions in place. Isolation precautions observed. Will continue to monitor.
--- NOTE | 2018-05-21 21:50 | NUR ---
Radiology at bedside for venous scan.
[2018-05-22] VITALS (33 sets, daily range): BP systolic 102–155
--- NOTE | 2018-05-22 00:47 | NUR ---
Dr. Walters Page made to Dr. Walters to give venous scan results.
[2018-05-22] MEDS: IPRATROPIUM/ALBUTEROL SULFATE 3 ML AMPUL.NEB (DUONEB) INH SCH ×4 (01:31→19:17)
[2018-05-22] MEDS: MORPHINE 4 MG/ML INJ. SYRINGE IVP PRN ×2 (01:40→21:36)
--- NOTE | 2018-05-22 02:15 | NUR ---
Dr. Romeo Walters on the phone. notified of venous doppler results. New orders received and will be carried out.
--- NOTE | 2018-05-22 02:20 | NUR ---
[facility] on the phone. Confirmed with them the ordered dose vs EMAAR dose, per pharmacy "Please use the 55mg dose per pt's weight and will re-confirm with in AM if he wants the 60mg."
--- NOTE | 2018-05-22 02:30 | NUR ---
RN Notes Pt had 1 x BM. Pt cleaned, francisco and cheryl care done. Pt tolerated care well.
[2018-05-22] MEDS: ENOXAPARIN SODIUM 40 MG/0.4 ML SYRINGE SUBCUT SCH ×3 (03:00→21:19)
[2018-05-22] MEDS ORDERED: ENOXAPARIN SODIUM 60 MG/0.6 ML SYRINGE SUBCUT SCH (03:00)
--- NOTE | 2018-05-22 04:08 | NUR ---
RN Notes Patient VSS. IVF infusing well. Tubefeeding tolerating well, no residual noted. Bailey in place, draining to gravity. No distress noted. Will continue to monitor.
[2018-05-22] MEDS: KCL 10 mEq in D5/0.45NS 1000mL 1,000 ML IV SCH ×2 (05:21→22:41)
--- NOTE | 2018-05-22 07:10 | NUR ---
Closing Note Pt VSS, no distress noted. Report given to Alpesh TERRELL.
--- NOTE | 2018-05-22 07:15 | NUR ---
OPENING NOTE: Received bedside SBAR report and plan of care from night RN
[2018-05-22] MEDS: COLISTIMETHATE SODIUM 150 MG VIAL INH SCH ×2 (07:52→19:17)
[2018-05-22] MEDS: HYDROCORTISONE SOD SUCC 100 MG/2 ML VIAL IVP SCH ×2 (08:13→21:16)
[2018-05-22] MEDS: PANTOPRAZOLE GRANULES PACKET 40 MG GT SCH (08:13)
[2018-05-22] MEDS: FUROSEMIDE 40 MG/4 ML VIAL IVP SCH (08:14)
[2018-05-22] MEDS: AMIODARONE HCL 200 MG TABLET GT SCH ×2 (08:14→21:16)
[2018-05-22] MEDS: BALSAM PERU/CASTOR OIL 60 GM OINT...G. TP SCH (08:15)
[2018-05-22 08:18] LABS: ALANINE AMINOTRANSFERASE 33 U/L (12-78); ALBUMIN 1.3 g/dL (3.4-4.8); ANION GAP 1 (5-15); ASPARTATE AMINOTRANSFERASE 15 U/L (10-37); CALCIUM 10.4 mg/dL (8.4-11.0); CHLORIDE 104 mmol/L (98-107); CREATININE 0.44 mg/dL (0.55-1.30); GLUCOSE 153 mg/dL (70-99); SODIUM SERUM 141 mmol/L (136-145); TOTAL BILIRUBIN 0.1 mg/dL (0.0-1.0); UREA NITROGEN, BLOOD 18 mg/dL (8-21)
[2018-05-22 08:35] LABS: POTASSIUM 2.7 mmol/L (3.5-5.1)
--- NOTE | 2018-05-22 09:00 | NUR ---
GTUBE: Dr. Dubois at bedside, leaking GTube removed and replaced with larger 24FR at bedside.
--- NOTE | 2018-05-22 09:20 | NUR ---
Dr Walters at bedside, new orders received.
--- NOTE | 2018-05-22 09:45 | NUR ---
Dr. Gomes at bedside
--- NOTE | 2018-05-22 10:25 | NUR ---
Dr. Altamirano at bedside.
[2018-05-22] MEDS: BACITRACIN ZINC 15 GM TOPICAL OINTMENT TP SCH ×2 (10:57→21:17)
[2018-05-22] MEDS ORDERED: POTASSIUM CHLORIDE 20 MEQ/PKT PACKET PO ONE (11:30)
[2018-05-22] MEDS ORDERED: KCL 40 mEq in 100 mL (PREMIX) 100 ML IV ONE (12:00)
[2018-05-22] MEDS ORDERED: DIATR MEGLU/DIATRIZ SOD 30 ML SOLUTION PO ONE (14:44)
--- NOTE | 2018-05-22 15:41 | NUR ---
XR abdomen confirmed g-tube placement Dr. Dubois updated.
--- NOTE | 2018-05-22 19:14 | NUR ---
CLOSING NOTE: Gave bedside SBAR report and endorsed plan of care to night RN.
--- NOTE | 2018-05-22 19:15 | NUR ---
Opening Note: Pt VSS, SR on personnel monitor. Patient trach to vent. Vent settings: AC 12, TV 450, FIO2 55%, PEEP 5, saturating @ 97%. KAYLEY Midline infusing D5W 1/2NS + 10mEq KCL @ 70mls/hr. L upper chest port-a-cath access noted, on saline lock. Pt on tubefeeding, Pivot 1.5 via Gtube @ 40mls/hr, no residual noted. Pt on francisco, urine draining to gravity. POC discussed. No distress noted. HOB elevated, call light within reach. Bed locked, in lowest position. Safety and aspiration precautions in place. Isolation precautions observed. Will continue to monitor.
--- NOTE | 2018-05-22 19:20 | NUR ---
Patient Care Pt had 1 x loose BM, pt cleaned. Bailey and cheryl care done. Pt tolerated care well.
[2018-05-22] MEDS ORDERED: ENOXAPARIN SODIUM 60 MG/0.6 ML SYRINGE ONE (21:16)
--- NOTE | 2018-05-22 22:05 | NUR ---
RN Notes Pt VSS. IVF infusing well. Gtube feeding @ 40mls/hr. Pt repositioned. No SOB, or distress noted. Will continue to monitor.
--- NOTE | 2018-05-22 23:30 | NUR ---
Patient Care Pt had 1 x loose BM, pt cleaned. Bailey and cheryl care done. Pt tolerated care well.
[2018-05-23] VITALS (28 sets, daily range): BP systolic 99–154
[2018-05-23] MEDS: IPRATROPIUM/ALBUTEROL SULFATE 3 ML AMPUL.NEB (DUONEB) INH SCH ×4 (00:59→20:10)
--- NOTE | 2018-05-23 02:02 | NUR ---
RN Notes Patient resting quietly in bed, IVF infusing well. No distress noted. Will continue to monitor.
--- NOTE | 2018-05-23 07:04 | NUR ---
Closing Note Pt VSS, no SOB or distress noted. No discomfort noted. Report endorsed to Alpesh TERRELL.
[2018-05-23 07:09] LABS: BASOPHILS % (AUTO) 0.1 % (0.0-2.0); EOSINOPHILS % (AUTO) 0.1 % (0.0-4.0); HEMATOCRIT 26.4 % (36-54); HEMOGLOBIN 8.3 g/dL (14.0-18.0); LYMPHOCYTES # (AUTO) 0.3 K/uL (1.0-5.5); LYMPHOCYTES % (AUTO) 1.9 % (20.5-51.5); MEAN CORPUSCULAR HEMOGLOBIN 29 pg (27-31); MEAN CORPUSCULAR HGB CONC 32 % (32-36); MEAN CORPUSCULAR VOLUME 90 fL (79.0-98.0); MONOCYTES # (AUTO) 0.2 K/uL (0.0-1.0); MONOCYTES % (AUTO) 1.4 % (1.7-9.3); NEUTROPHILS # (AUTO) 13.8 K/uL (1.8-7.7); NEUTROPHILS % (AUTO) 96.5 % (40.0-70.0); PLATELET COUNT (AUTO) 204 K/uL (130-430); RED BLOOD CELL COUNT(AUTO) 2.92 MIL/uL (4.2-6.2); RED CELL DISTRIBUTION WIDTH 19.5 % (9.0-15.0); WHITE BLOOD COUNT (AUTO) 14.3 K/uL (4.8-10.8)
--- NOTE | 2018-05-23 07:15 | NUR ---
RN OPENING NOTE SBAR REPORT RECEIVED AT BEDSIDE BY ENDORSING RN. SEE VS FLOW SHEET.
[2018-05-23 07:54] LABS: ANION GAP 1 (5-15); CALCIUM 9.7 mg/dL (8.4-11.0); CHLORIDE 107 mmol/L (98-107); CREATININE 0.46 mg/dL (0.55-1.30); GLUCOSE 100 mg/dL (70-99); POTASSIUM 4.1 mmol/L (3.5-5.1); SODIUM SERUM 143 mmol/L (136-145); UREA NITROGEN, BLOOD 16 mg/dL (8-21)
[2018-05-23 08:05] LABS: ALANINE AMINOTRANSFERASE 33 U/L (12-78); ALBUMIN 1.3 g/dL (3.4-4.8); ASPARTATE AMINOTRANSFERASE 19 U/L (10-37); TOTAL BILIRUBIN 0.3 mg/dL (0.0-1.0)
--- NOTE | 2018-05-23 08:10 | NUR ---
DR. ROGER ([facility]) AT BEDSIDE NEW ORDERS RECEIVED.
[2018-05-23] MEDS: COLISTIMETHATE SODIUM 150 MG VIAL INH SCH ×2 (08:19→20:17)
--- NOTE | 2018-05-23 08:30 | NUR ---
DR. HICKEY ([facility]) AT BEDSIDE NO NEW ORDERS
[2018-05-23] MEDS: BALSAM PERU/CASTOR OIL 60 GM OINT...G. TP SCH (09:25)
[2018-05-23] MEDS: PANTOPRAZOLE GRANULES PACKET 40 MG GT SCH (09:26)
[2018-05-23] MEDS: FUROSEMIDE 40 MG/4 ML VIAL IVP SCH (09:26)
[2018-05-23] MEDS: HYDROCORTISONE SOD SUCC 100 MG/2 ML VIAL IVP SCH ×2 (09:27→21:42)
[2018-05-23] MEDS: AMIODARONE HCL 200 MG TABLET GT SCH ×2 (09:27→21:45)
[2018-05-23] MEDS: BACITRACIN ZINC 15 GM TOPICAL OINTMENT TP SCH ×2 (09:28→21:47)
[2018-05-23] MEDS: ENOXAPARIN SODIUM 60 MG/0.6 ML SYRINGE SUBCUT SCH ×2 (09:29→21:46)
--- NOTE | 2018-05-23 09:35 | NUR ---
DR. TY (PRIMARY) AT BEDSIDE
[2018-05-23] MEDS: KCL 10 mEq in D5/0.45NS 1000mL 1,000 ML IV SCH (11:42)
--- NOTE | 2018-05-23 11:50 | NUR ---
WOUND CARE/CHG BATH PROVIDED AT BEDSIDE
--- NOTE | 2018-05-23 14:35 | NUR ---
DOWNGRADE TO TELEMETRY PER DR. KARSON ROGER AND DR. HICKEY APPROVED DOWNGRADE. PT'S FAMILY UPDATED. CONTINUING CARE IN ICU UNTIL A TELEMETRY NURSE IS AVAILABLE TO RECEIVE PATIENT.
--- NOTE | 2018-05-23 16:48 | NUR ---
Nutrition F/U Pt was visited by RD earlier this afternoon. Current EMR records reviewed prior to RD visit. Per RN, pt has been tolerating TF well w/ minimal leakage around GT site now, and pt continues to tolerate TF well without residuals. Current TF regimen: Pivot 1.5 at 40 ml/hr, Free Water Flush: 200 Q4 via GT has been ongoing for the past 7 days. TF prescription continues adequate/appropriate. RD to continue to follow as per nutrition care standards.
--- NOTE | 2018-05-23 16:51 | NUR ---
Dietitian Recommendations * Recommend continuing Pivot 1.5 at 40 ml/hr, Free Water Flush: 200 Q4 via GT Provides: 1440 kcal/day, 90 gm protein/day, and 1329 ml free water/day Meets: 108% of estimated calorie needs and 83% of upper end of estimated protein needs LP, RD
--- NOTE | 2018-05-23 19:25 | NUR ---
TRANSFER TO TELEMETRY PT TRANSPORTED IN BED WITH CRIMPING MACHINE OPERATOR FOR METAL AND RESPIRATORY THERAPIST TO MONITOR VENT TO TELEMETRY 122-A. ALL BELONGINGS TRANSFERRED WITH PT. SBAR REPORT ENDORSED TO RECEIVING RN AT BEDSIDE
--- NOTE | 2018-05-23 20:00 | NUR ---
Initial Note Received patient asleep but arousable. Opens eyes and moves head if asked with a question. No SOB or grimacing noted. Trach to vent, settings checked. IVF and GT feeding resumed. Dressings CDI. Repositioned every hour. Peripheral edema BUE noted with RUE>LUE. BUE weeping noted. KAYLEY midline patent and intact. Right chest portacath dressing CDI. GT dressing CDI, no leaking noted. F/C intact and draining well. Heel/leg protectors noted. Care and monitoring will be provided per protocol. Needs attended. Call light within reach. Bed alarm on and at lowest position at all times. Kept warm and comfortable.
--- NOTE | 2018-05-23 21:27 | NUR ---
Med Pyxis Made aware Jesus Alberto charge nurse that no medications listed on Med Pyxis since patient was accidentally discharged on computer by ICU. Called pharmacy after hours and they said that meds are active for this patient on their part. Pharmacy suggested to call IT to figure out what to do. Jesus Alberto talked to RN [employer] [facility] able to call IT and they are not available at this time and can't do anything about it. Will endorse to AM shift to follow up tomorrow with IT. The only way to get the meds are to override on med pyxis. Took due meds by overriding it on med pyxis. Due meds given at 2145. No residual noted. Flushed free water. No leakage on GT site. Repositioned. Right arm weeping and skin care provided. Kept warm and comfortable.
[2018-05-23] MEDS ORDERED: AMIODARONE HCL 200 MG TABLET ONE (21:41)
[2018-05-23] MEDS ORDERED: ENOXAPARIN SODIUM 60 MG/0.6 ML SYRINGE ONE (21:45)
[2018-05-23] MEDS ORDERED: HYDROCORTISONE SOD SUCC 100 MG/2 ML VIAL ONE (21:46)
--- NOTE | 2018-05-23 23:30 | NUR ---
RN Note Patient sleeping but open eyes when talked to. Repositioned. No SOB or grimacing noted. IVF and GT feeding infusing. Vent settings checked. Kept comfortable.
[2018-05-24] VITALS: BP_SYST 122
--- NOTE | 2018-05-24 01:00 | NUR ---
RN Note Asleep but arousable. Opens eyes. Repositioned. No SOB or grimacing noted. Kept warm and comfortable.
[2018-05-24] MEDS: IPRATROPIUM/ALBUTEROL SULFATE 3 ML AMPUL.NEB (DUONEB) INH SCH ×4 (01:14→19:28)
[2018-05-24] MEDS ORDERED: IPRATROPIUM/ALBUTEROL SULFATE 3 ML AMPUL.NEB (DUONEB) ONE ×2 (01:20→07:54)
[2018-05-24] MEDS: KCL 10 mEq in D5/0.45NS 1000mL 1,000 ML IV SCH ×2 (03:25→16:32)
--- NOTE | 2018-05-24 04:00 | NUR ---
RN Note PAtient arousable. No signs of acute distress. Not congested. Repositioned several times. No residual noted. Flushed free water. IVf infusing. Kept comfortable.
--- NOTE | 2018-05-24 06:20 | NUR ---
End Note Afebrile. VS stable. Awake and moves his head when talked to. Vent trach settings checked. Oral care done. No SOB or grimacing noted throughout the night. No residual noted. GT dressing and wound dressings are CDI. IVF infusing. Repositioning Q1 hour. Will endorse to AM shift re code status. Isolation precaution observed. Care and monitoring provided per protocol. Call light within reach. Bed alarm on and at lowest position at all times. NSR on monitor. Needs attended. Kept warm and comfortable.
--- NOTE | 2018-05-24 07:40 | NUR ---
Opening Note: Patient laying in bed resting. Patient shows no signs of pain or discomfort. Breathing is even and unlabored on ventilator. Vent settings checked at bedside. Mid line patent and intact running IVF per MD orders. Bailey catheter patent and intact with visible urine output. Safety precautions in place; bed in lowest position, wheels locked, side rails x3, bed alarm activated and call light within reach. No needs at this time. Will continue to monitor.
[2018-05-24] MEDS: COLISTIMETHATE SODIUM 150 MG VIAL INH SCH (07:47)
[2018-05-24 08:09] VITALS: BP_SYST 110
[2018-05-24] MEDS: PANTOPRAZOLE GRANULES PACKET 40 MG GT SCH (09:39)
[2018-05-24] MEDS: ENOXAPARIN SODIUM 60 MG/0.6 ML SYRINGE SUBCUT SCH ×2 (09:41→22:17)
[2018-05-24] MEDS: HYDROCORTISONE SOD SUCC 100 MG/2 ML VIAL IVP SCH ×2 (09:41→22:17)
[2018-05-24] MEDS: AMIODARONE HCL 200 MG TABLET GT SCH ×2 (09:42→22:16)
[2018-05-24] MEDS: FUROSEMIDE 40 MG/4 ML VIAL IVP SCH (09:42)
[2018-05-24] MEDS: BACITRACIN ZINC 15 GM TOPICAL OINTMENT TP SCH ×2 (09:43→22:18)
[2018-05-24] MEDS: BALSAM PERU/CASTOR OIL 60 GM OINT...G. TP SCH (09:44)
--- NOTE | 2018-05-24 09:45 | NUR ---
Verified with Dr. Armenta: Patient's BP 110/60. Verified with Dr. Armenta administration of Lasix 40 mg and Amiodarone 200 mg.
[2018-05-24 12:00] VITALS: BP_SYST 125
--- NOTE | 2018-05-24 12:00 | NUR ---
Rounds: Patient laying in bed resting. No signs of pain or discomfort. Free flush given through G-tube. Oral care provided. Patient suctioned and repositioned. IVF infusing with no signs of infiltration. Morning medications tolerated well. Isolation precautions in place. Safety precautions in place. No needs at this time. Will continue to monitor.
--- NOTE | 2018-05-24 14:12 | NUR ---
Verified with Family Code Status: Verified with family code status, per daughter Gaby the family wants a modified code, ACLS drugs/Vasopressors only.
[2018-05-24] MEDS: MORPHINE 4 MG/ML INJ. SYRINGE IVP PRN (15:06)
[2018-05-24 16:04] VITALS: BP_SYST 124
--- NOTE | 2018-05-24 16:04 | NUR ---
Rounds/Wound Care: Patient laying in bed resting. Wound care done per wound care orders. Oral care provided. Patient suctioned and repositioned. Isolation precautions in place. Safety precautions in place. No needs at this time. Will continue to monitor.
--- NOTE | 2018-05-24 18:32 | NUR ---
Closing Note: Patient laying in bed resting. Patient shows no signs of pain or discomfort. Breathing is even and unlabored on ventilator. Vent settings checked at bedside. Trach intact. Mid line patent and intact running IVF per MD orders. Bailey catheter patent and intact with visible urine output. Wound dressings intact, dressing clean and dry. Safety precautions in place; bed in lowest position, wheels locked, side rails x3, bed alarm activated and call light within reach. All needs met. Will endorse plan of care to NOC, nurse.
[2018-05-24 20:14] VITALS: BP_SYST 129
--- NOTE | 2018-05-24 22:15 | NUR ---
LOVENOX 60 MG SUB Q. ADMINISTER ORDERED NO S/SX OF BLEEDING NOTED / .
[2018-05-24 23:31] VITALS: BP_SYST 106
--- NOTE | 2018-05-25 | NUR ---
TRACH TO VENTILATOR SUCTION UP RIGHT POSITION MODERATE AMOUNT OF THICK WHITE SPUTUM CHEST MOVEMENT SHALLOW ALSO SYMMETRICAL UNLABORED .
--- NOTE | 2018-05-25 00:27 | NUR ---
Reposition & Turning patient on hourly schedule off loading with pillows kept clean also dry as needed .
--- NOTE | 2018-05-25 00:31 | NUR ---
TRACHEAL SUCTION UPRIGHT POSITION PATIENT AWAKE NON - VERBAL MINIMAL VENT ALARMING noted .
[2018-05-25] MEDS: IPRATROPIUM/ALBUTEROL SULFATE 3 ML AMPUL.NEB (DUONEB) INH SCH ×4 (00:42→19:31)
--- NOTE | 2018-05-25 05:14 | NUR ---
WOUND CARE PERFORMED / IMPLEMENTED TO LEFT & RIGHT NECK AREAS , ORDERED DISCOMFORT NOTED TO LESION RAISED AREAS , PATIENT TOLERATE .
[2018-05-25] MEDS: KCL 10 mEq in D5/0.45NS 1000mL 1,000 ML IV SCH (05:16)
[2018-05-25 07:04] LABS: ALANINE AMINOTRANSFERASE 24 U/L (12-78); ALBUMIN 1.3 g/dL (3.4-4.8); ANION GAP 0 (5-15); ASPARTATE AMINOTRANSFERASE 15 U/L (10-37); CHLORIDE 104 mmol/L (98-107); CREATININE 0.48 mg/dL (0.55-1.30); GLUCOSE 129 mg/dL (70-99); SODIUM SERUM 141 mmol/L (136-145); TOTAL BILIRUBIN 0.2 mg/dL (0.0-1.0); UREA NITROGEN, BLOOD 21 mg/dL (8-21)
[2018-05-25 07:07] LABS: POTASSIUM 2.9 mmol/L (3.5-5.1)
--- NOTE | 2018-05-25 07:14 | NUR ---
PHONED PAGED DR TERESA OCONNOR FOR LAB K 2.9 CALL BACK PENDING FROM .
[2018-05-25 07:16] LABS: BASOPHILS % (AUTO) 0.2 % (0.0-2.0); EOSINOPHILS # (AUTO) 0.1 K/uL (0.0-0.4); EOSINOPHILS % (AUTO) 0.4 % (0.0-4.0); HEMATOCRIT 23.5 % (36-54); HEMOGLOBIN 7.8 g/dL (14.0-18.0); LYMPHOCYTES # (AUTO) 0.3 K/uL (1.0-5.5); MEAN CORPUSCULAR HEMOGLOBIN 30 pg (27-31); MEAN CORPUSCULAR HGB CONC 33 % (32-36); MEAN CORPUSCULAR VOLUME 90 fL (79.0-98.0); MONOCYTES # (AUTO) 0.4 K/uL (0.0-1.0); MONOCYTES % (AUTO) 2.2 % (1.7-9.3); NEUTROPHILS # (AUTO) 16.6 K/uL (1.8-7.7); NEUTROPHILS % (AUTO) 95.2 % (40.0-70.0); PLATELET COUNT (AUTO) 191 K/uL (130-430); RED BLOOD CELL COUNT(AUTO) 2.62 MIL/uL (4.2-6.2); RED CELL DISTRIBUTION WIDTH 19.4 % (9.0-15.0); WHITE BLOOD COUNT (AUTO) 17.4 K/uL (4.8-10.8)
--- NOTE | 2018-05-25 07:21 | NUR ---
NEW FROM DR KARSON EWING FOR K 2.9 GIVE POTASSIUM 40 MEQ PO . X ONE DOSE .
--- NOTE | 2018-05-25 07:25 | NUR ---
Opening Note: Patient laying in bed resting. Patient shows no signs of pain or discomfort. Breathing is even and unlabored on ventilator. Trach intact. Vent settings checked at bedside. Mid line patent and intact running IVF per MD orders. Portocath on left upper chest dressing clean and intact. Bailey catheter patent and intact with visible urine output. Safety precautions in place; bed in lowest position, wheels locked, side rails x3, bed alarm activated and call light within reach. No needs at this time. Will continue to monitor.
[2018-05-25] MEDS ORDERED: POTASSIUM CHLORIDE 20 MEQ TAB.PRT.SR PO ONE (07:30)
[2018-05-25 08:02] VITALS: BP_SYST 131
[2018-05-25] MEDS: HYDROCORTISONE SOD SUCC 100 MG/2 ML VIAL IVP SCH ×2 (08:39→20:26)
[2018-05-25] MEDS: FUROSEMIDE 40 MG/4 ML VIAL IVP SCH (08:40)
[2018-05-25] MEDS: PANTOPRAZOLE GRANULES PACKET 40 MG GT SCH (08:40)
[2018-05-25] MEDS: AMIODARONE HCL 200 MG TABLET GT SCH ×2 (08:40→20:27)
[2018-05-25] MEDS: ENOXAPARIN SODIUM 60 MG/0.6 ML SYRINGE SUBCUT SCH ×2 (08:48→20:32)
[2018-05-25] MEDS: BACITRACIN ZINC 15 GM TOPICAL OINTMENT TP SCH ×2 (08:49→20:34)
[2018-05-25] MEDS: BALSAM PERU/CASTOR OIL 60 GM OINT...G. TP SCH (08:49)
--- NOTE | 2018-05-25 10:08 | NUR ---
ROUNDS: PATIENT IN BED RESTING, REPOSITIONED. NO SIGNS OF PAIN OR DISCOMFORT. NO SIGNS OF RESPIRATORY DISTRESS. NO NEEDS AT THIS TIME. WILL CONTINUE TO MONITOR.
--- NOTE | 2018-05-25 10:16 | NUR ---
Rounds: Patient in bed resting. No pain or discomfort. No distress noted. Will continue to monitor. Addendum: 05/25/18 at 1019 by Catherine Hooks RN Disregard note, entered in error.
--- NOTE | 2018-05-25 11:27 | NUR ---
Case mgt: WBC increased to 17.4--MDRO/LSW noted in neck wounds and sputum--remains in isolation --from [facility]--will f/u for dc planning--updated Hari at [facility]-- RN
[2018-05-25 12:00] VITALS: BP_SYST 109
--- NOTE | 2018-05-25 12:33 | NUR ---
Rounds: Patient laying in bed resting. No signs of pain or discomfort. Free flush given through G-tube. Oral care provided. Patient suctioned and repositioned. Morning medications tolerated well. Isolation precautions in place. Safety precautions in place. No needs at this time. Will continue to monitor.
--- NOTE | 2018-05-25 14:14 | NUR ---
Case mgt: Rec'd order for dc to subacute if ok with cylinder worker. Nurse Catherine will call Dr. Alex (pulmo) to check if he is ok with pt's transfer to subacute snf. I called Hari at [facility] [phone] and informed her of new order and that nurse is calling cylinder worker for pulm clearance. Per cm notes, dtr Gaby Dipak [phone] indicates she prefers SNF closer to her ([facility]). Hari said nazia lives in [place] and Hari has s/w her before and Hari will call [facility] first before attempting other subacutes. Hari aware pt is MDRO/COOK RELIEF sputum. I left a voice message on dttej Griffin's ph# to call me back re: dc order for subacute. TERE RN
--- NOTE | 2018-05-25 14:41 | NUR ---
PAGING DR. ROGER: PAGING DR. ROGER REGARDING DISCHARGE ORDER. PATIENT NEEDS TO BE CLEARED FOR DISCHARGE.
--- NOTE | 2018-05-25 15:39 | NUR ---
Case mgt: Per Erwin Noriega briefcase sewer, no isolation beds available at [facility]. Hari will start making referrals in [facility] per dtr Gaby's preference. Hari aware of MDRO/GARDEN LABOURER neck/sputum cultures. Pt on [facility]. TERE RN
[2018-05-25 16:07] VITALS: BP_SYST 122
--- NOTE | 2018-05-25 16:10 | NUR ---
WOUND RE-EVALUATION: Late note for 1609 secondary to patient care. Patient received in a Jalen Bed with an IsoFlex FATEMEH mattress low air loss therapy, awake, non-verbal, non-responsive to verbal commands, pulls away with tactile stimulation. Patient is unable to turn in bed independently. Dustin Score is a 12. Recent labs: WBC 17.4, RBC 2.62, hemoglobin 7.8, hematocrit 23.5, potassium 2.9, BUN 21, creatinine 0.48, glucose 129, alkaline phosphatase is 130, albumin 1.3, PTT 35.2. Microbiology: Blood culture results 2 negative. Tracheal aspirate culture positive for Acinetobacter Baumannii/Haemol (MDRO, SECRETARY OFFICE CLERK). Neck wound culture positive for Acinetobacter Baumannii/Haemol (MDRO, SECRETARY OFFICE CLERK), and Streptococcus group B (MDRO, SECRETARY OFFICE CLERK). Intrinsic factors that delay wound healing: Metastatic Head and Neck Cancer, Dysphagia, Chronic Obstructive Pulmonary Disease, chronic ventilator dependency, acute renal failure, anemia. Extrinsic factors that delay wound healing: Immobility. Wound Assessment: 1. Sacral-Coccygeal area: Unstageable pressure ulcer, present on admission. Wound bed has 40% brown slough, 50% yellow slough, 10% pink tissue. No odor, no drainage. Periwound and surrounding tissue has purple and black discoloration, wound has evolved, and is healing. Wound measures 9.0 cm x 12.0 cm. Recommend continue: Cleanse wound with normal saline. Apply moisture barrier cream to cheryl-wound. Apply Venelex ointment onto wound bed. Cover with Sacral foam dressing. Perform wound care daily, and as needed for dressing soiling or dislodgement. 2. Lower thoracic spine, superior wound: Unstageable pressure ulcer, present on admission. Wound bed has 55% light yellow slough, 40% brown slough, 5% black tissue. No odor, no drainage. Periwound pink (scar tissue from healing). Wound has evolved and is healing. Wound measures 2.2 cm x 2.0 cm. 3. Lower thoracic spine, middle wound: Unstageable pressure ulcer, present on admission. Wound bed has 60% yellow slough, 40% brown slough. No odor, no drainage. Periwound pink (scar tissue from healing). Wound has evolved and is healing. Wound measures 2.5 cm x 4.0 cm. 4. Lower thoracic spine, inferior wound: Unstageable pressure ulcer, present on admission. Wound bed has 90% yellow slough, 10% pink tissue. No odor, no drainage. Periwound pink (scar tissue from healing). Wound has evolved and is healing. Wound measures 2.3 cm x 1.2 cm. Recommend continue: Cleanse wounds with normal saline. Apply moisture barrier cream to cheryl-wounds. Apply Venelex ointment onto wound beds. Cover with two non-adhesive foam dressings, then transparent dressings. Perform wound care daily, and as needed for dressing soiling or dislodgement. 5. Right posterior and lateral trunk: Area of now 100% light brown discoloration, present on admission. No odor, no drainage. Recommend continue: Apply moisture barrier cream to involved areas. If soiled, gently cleanse areas (do not try to remove moisture barrier cream), pat dry, and apply another light application of moisture barrier cream. Perform site care 4 times a day, and as needed for soiling. 6. Mid thoracic spine, superior to wound 2: Area of blanchable red discoloration, present on admission. Appears to have resolved. Recommend: Cleanse involved areas with normal saline. Pat dry. Apply moisture barrier cream to involved area. Perform site care qid, and as needed for soiling. 7. Left lateral hip: Area of dark discoloration and pink scar tissue, present on admission. The 2 small areas that recently reopened have resolved. Scar tissue area measures 0.6 cm x 0.6 cm. Total area including dark discoloration measures 5.0 cm x 3.0 cm. Recommend continue: Cleanse involved areas with normal saline. Pat dry. Apply moisture barrier cream to involved areas. Cover with a foam dressing. If soiled, gently cleanse area (do not try to remove moisture barrier cream), pat dry, and apply another light application of moisture barrier cream. Perform site care daily, and as needed for dressing soiling or dislodgment. 8. Left buttock near ischial tuberosity: Area of red discoloration. The 3 small areas that were open resolved. Scar tissue area measures 2.8 cm x 4.0 cm. Total area including dark discoloration measures 7.0 cm x 5.2 cm. Recommend continue: Cleanse involved areas with normal saline. Pat dry. Apply moisture barrier cream to involved areas. Cover with a foam dressing. If soiled, gently cleanse area (do not try to remove moisture barrier cream), pat dry, and apply another light application of moisture barrier cream. Perform site care daily, and as needed for dressing soiling or dislodgment. 9. Left posterior heel: Bulla, present on admission. No discoloration. No odor, no drainage. Medial aspect of bulla has open, with 100% pink tissue visible open area. Recommend: Cover medial heel with oil emulsion dressing, then cover entire heel with foam dressing. Keep both heels in HeelLift boots. Check heel position in boots when repositioning patient to ensure that heels do not rub against boot. Remove boots for 1 hour and float heels with pillows once a shift. 10. Left lateral neck: Wound, present on admission. Wound care performed by night nurse nurse. Dressing not removed for assessment secondary to doing so would decrease wound temperature and retard wound healing rate. Recommend continue: Cleanse wound with normal saline. Apply moisture barrier cream to cheryl-wound. Apply Venelex ointment onto open wound beds. Cover with non-adhesive foam dressing. Secure dressing with trach collar. Perform wound care daily, and as needed for dressing soiling or dislodgement. 11. Right lateral neck: Large, gaping wound, present on admission. Wound care performed by night nurse nurse. Dressing not removed for assessment secondary to doing so would decrease wound temperature and retard wound healing rate. Recommend continue: Cleanse wound with normal saline. Apply moisture barrier cream to cheryl-wound. Apply Venelex ointment into wound bed. Gently pack wound with 1/2 inch iodoform packing strip, ensuring not to pack deeply. Cover with non-adhesive foam dressing. Secure dressing with trach collar. Perform wound care daily, and as needed for dressing soiling or dislodgement. 12. Right upper extremity: 4+ pitting edema, with small-moderate serosanguineous drainage, and multiple areas of ecchymosis, present on admission. 13. Left upper extremity: 2+ pitting edema, and multiple areas of ecchymosis, present on admission. Recommend continue: Cleanse involved areas with normal saline. Pat dry. Wrap extremities with clean chucks. Perform site care qshift, and as needed for gabe soiling. Elevate bilateral upper extremities with pillows at all times. Also recommend continue: Reposition patient [id number]-[id number] only every hour with one pillow deep underneath trunk, and one pillow underneath pelvic area, and off-load pressure areas with pillows for pressure re-distribution. Offload, elevate and float bilateral heels with Heelift Boots. Perform skin care and monitor skin integrity Q shift. Use moisture barrier cream on buttocks and other moisture susceptible areas QID and as needed for soiling. Maintain patient on a low air-loss mattress.
[2018-05-25] MEDS ORDERED: COLISTIMETHATE SODIUM 150 MG VIAL INH ONE (16:15)
--- NOTE | 2018-05-25 17:00 | NUR ---
Appealed Discharge: Daughter Gaby at bedside. Informed Gaby of MD orders for discharge and that patient was cleared to go by Dr. Abi viera. CM from [place] also spoke to Gaby. Gaby appealed the discharge stating "I want my dad to be more stable and at his baseline, I don't think he's at his baseline now."
--- NOTE | 2018-05-25 18:12 | NUR ---
Closing Note: Patient laying in bed resting. Patient shows no signs of pain or discomfort. Breathing is even and unlabored on ventilator. Vent settings checked at bedside. Trach intact. Mid line patent and intact and saline locked. Bailey catheter patent and intact with visible urine output. Wound dressings intact, dressing clean and dry. Safety precautions in place; bed in lowest position, wheels locked, side rails x3, bed alarm activated and call light within reach. All needs met. Will endorse plan of care to NOC, nurse.
--- NOTE | 2018-05-25 19:20 | NUR ---
OPENING NOTE Received report from Catherine. Patient resting in bed awake, alert, non-verbal. Breathing unlabored and even, trach to vent. No signs of distress, no needs at this time. Fall, safety, contact, aspiration precautions in place. Bed in lowest position, brake on, alarm on, call light within reach. G-tube feeding running as ordered. IV access saline locked. Pillow support, heel boots in place. Will continue to monitor.
[2018-05-25 20:11] VITALS: BP_SYST 137
--- NOTE | 2018-05-25 20:30 | NUR ---
Zero g-tube residual noted. Flushed g-tube with 200cc of H2O. Addendum: 05/26/18 at 0012 by Heidi Tejada RN Oral care also provided.
--- NOTE | 2018-05-25 22:37 | NUR ---
Patient resting in bed with eyes closed. Breathing unlabored and even, trach to vent. No signs of distress, no needs at this time. Fall, safety, contact, aspiration precautions in place. Bed in lowest position, brake on, alarm on, call light within reach. G-tube feeding running as ordered. Pillow support, heel boots in place. Will continue to monitor.
[2018-05-25 23:25] VITALS: BP_SYST 122
--- NOTE | 2018-05-26 00:11 | NUR ---
Zero g-tube residual noted. G-tube flushed with 200cc of water. Oral care and suctioning provided. Patient tolerated well.
[2018-05-26] MEDS: IPRATROPIUM/ALBUTEROL SULFATE 3 ML AMPUL.NEB (DUONEB) INH SCH ×4 (01:15→20:53)
--- NOTE | 2018-05-26 06:00 | NUR ---
Zero g-tube residual noted. G-tube flushed with 100cc of water. Oral care and suctioning provided. Patient tolerated well.
[2018-05-26 06:53] LABS: BASOPHILS % (AUTO) 0.1 % (0.0-2.0); EOSINOPHILS % (AUTO) 0.2 % (0.0-4.0); HEMATOCRIT 26.6 % (36-54); HEMOGLOBIN 8.3 g/dL (14.0-18.0); LYMPHOCYTES # (AUTO) 0.3 K/uL (1.0-5.5); LYMPHOCYTES % (AUTO) 1.8 % (20.5-51.5); MEAN CORPUSCULAR HEMOGLOBIN 28 pg (27-31); MEAN CORPUSCULAR HGB CONC 31 % (32-36); MEAN CORPUSCULAR VOLUME 89 fL (79.0-98.0); MONOCYTES # (AUTO) 0.3 K/uL (0.0-1.0); MONOCYTES % (AUTO) 1.5 % (1.7-9.3); NEUTROPHILS % (AUTO) 96.4 % (40.0-70.0); PLATELET COUNT (AUTO) 218 K/uL (130-430); RED BLOOD CELL COUNT(AUTO) 2.98 MIL/uL (4.2-6.2); RED CELL DISTRIBUTION WIDTH 19.3 % (9.0-15.0); WHITE BLOOD COUNT (AUTO) 18.6 K/uL (4.8-10.8)
--- NOTE | 2018-05-26 07:03 | NUR ---
Wound care performed on right and left lateral neck wounds. Trach suctioning provided.
--- NOTE | 2018-05-26 07:22 | NUR ---
CLOSING NOTE Gave report to Catherine. Patient resting in bed with eyes closed. Breathing unlabored and even, trach to vent. No signs of distress, no needs at this time. Fall, safety, contact, aspiration precautions in place. Bed in lowest position, brake on, alarm on, call light within reach. G-tube feeding running as ordered. Pillow support, heel boots in place. Endorsed care to day shift nurse.
--- NOTE | 2018-05-26 07:30 | NUR ---
Opening Note: Patient laying in bed resting. Patient shows no signs of pain or discomfort. Breathing is even and unlabored on ventilator. Trach intact. Vent settings checked at bedside. Mid line patent and intact. Portocath on left upper chest dressing clean and intact. Bailey catheter patent and intact with visible urine output. Isolation precautions in place. Safety precautions in place; bed in lowest position, wheels locked, side rails x3, bed alarm activated and call light within reach. No needs at this time. Will continue to monitor.
--- NOTE | 2018-05-26 07:40 | NUR ---
Dr. Smiley at bedside: Dr. Smiley at bedside. Orders received regarding potassium, if potassium is < 3.5 administer 40 meq of K-Dur through the G-tube. Orders to be entered by RN.
[2018-05-26 07:41] LABS: ANION GAP 3 (5-15); CALCIUM 9.9 mg/dL (8.4-11.0); CHLORIDE 103 mmol/L (98-107); CREATININE 0.41 mg/dL (0.55-1.30); GLUCOSE 115 mg/dL (70-99); POTASSIUM 3.1 mmol/L (3.5-5.1); SODIUM SERUM 141 mmol/L (136-145); UREA NITROGEN, BLOOD 24 mg/dL (8-21)
[2018-05-26] MEDS: COLISTIMETHATE SODIUM 150 MG VIAL INH SCH ×2 (08:03→20:54)
[2018-05-26] MEDS ORDERED: POTASSIUM CHLORIDE 20 MEQ TAB.PRT.SR GT ONE (08:15)
[2018-05-26 08:23] VITALS: BP_SYST 106
[2018-05-26] MEDS: ENOXAPARIN SODIUM 60 MG/0.6 ML SYRINGE SUBCUT SCH ×2 (09:18→20:43)
[2018-05-26] MEDS: PANTOPRAZOLE GRANULES PACKET 40 MG GT SCH (09:19)
[2018-05-26] MEDS: AMIODARONE HCL 200 MG TABLET GT SCH ×2 (09:20→22:22)
[2018-05-26] MEDS: HYDROCORTISONE SOD SUCC 100 MG/2 ML VIAL IVP SCH ×2 (09:20→20:42)
[2018-05-26] MEDS: BALSAM PERU/CASTOR OIL 60 GM OINT...G. TP SCH (09:22)
[2018-05-26] MEDS: BACITRACIN ZINC 15 GM TOPICAL OINTMENT TP SCH ×2 (09:22→22:22)
--- NOTE | 2018-05-26 09:40 | NUR ---
Wound Care: Wound care done to sacrococcygeal area, back and heel.
[2018-05-26 10:47] VITALS: BP_SYST 129
[2018-05-26 11:12] VITALS: BP_SYST 129
--- NOTE | 2018-05-26 12:57 | NUR ---
DC PLANNING Called & spoke fernando Noriega @ [place], ph [phone], earlier this am. Is going to find out about appeal?, pt Medi-mikhail pt not Medicare. Has an accepting subacute [facility]. Sent to [facility] & has not heard back from them if can accept pt. Has not been able to find accepting contracted subacute in [facility]. After Dr Armenta in, ordered dc to Subacute if ok w Pulm. Called & informed Hari, states that she will call & speak w dtr & will updated me. Addendum: 05/26/18 at 1623 by Jennifer Finney RN Called & spoke fernando Noriega @ [facility] states that spoke w dtr earlier today & informed that if refused transfer to contracted subacute that would issue a denial & would be financially responsible. Dtr was going to call Hari back w answer. I called & spoke fernando Noriega to f/u, per Hari might have lost the bed @ [facility], that is waiting to hear back from [place]. States that she updated dtr & will call dtr if gets bed @ [facility] & confirm that is agreeable w transfer. If gets bed will call g station directly. Informed pt's nurse, Catherine.
--- NOTE | 2018-05-26 13:44 | NUR ---
Nutrition F/U Admitting Diagnosis Pneumonia, Sepsis Reviewed Pertinent Medical/Surgical Hx Medical Record Patient Primary RN Medical History Comment: PMH: H/O head and neck cancer, S/P radiation, chemo, S/P tach, S/P chemo and radiation, H/O GT placement for dysphagia, H/O COPD per MD notes. Pt found w/: LOC, shortness of breath, Bilateral Infiltrates, Leukocytosis, ARF, Hypercalcemia, Hypernatremia, anemia per MD notes. 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 TF Pivot 1.5 seen hung and infusing at 40 ml/hr via GT. So far, 676 ml infused, providing 1014 kcal. Pt seems to be tolerating TF well. Per EMR, TF Intakes: 480 ml 05/26/18. Residuals: 10 ml 05/25/18. Last BM x2 05/26/18. I/O: 480/500 (-20 ml) per 12 hours. MD TF order seemed to be accidently cancelled. Current Diet Order/Nutrition Support N/A Patient/Significant Other Unable To Verbalize Education Provided Not Indicated Pertinent Medications solu-cortef, protonix Pertinent Labs K 3.1 L, BG 115 H, BUN 24 H, ALB 1.3 L, H/H 8.3 L/26.6 L, WBC 18.6 H Height (Feet) 5 feet Height (Inches) 0.00 inches Weight (Pounds) 120 pounds (05/16/18) Weight (Calculated Kilograms) 54.681599 kilograms Patient Weight 54.431 kg Body Mass Index 23.43 kg/m2 %IBW 120 [place]/Adjusted Body Weight 100 lb, 45 kg Weight Status Appropriate Difficulty With: Swallowing Food Allergies unknown Usual Diet At Home Jevity 1.5 at 50ml x 20 hrs, Prostat QD, FWF 20ml Q1hr via GT per hard chart Skin Integrity Comment: Dustin scale: 12; per Grades 1 Through 6 Teacher note 05/25/18: 1. Sacral coccygeal area: Unstageable pressure ulcer, present on admission. 2. Lower thoracic spine, superior wound: Unstageable pressure ulcer, present on admission. 3. Lower thoracic spine, middle wound: Unstageable pressure ulcer, present on admission. 4. Lower thoracic spine, inferior wound: Unstageable pressure ulcer, present on admission. 5. Right posterior and lateral trunk: Area of 100% light brown discoloration, present on admission. 6. Mid thoracic spine, superior to wound 2: Area of blanchable red discoloration, present on admission. 7. Left lateral hip: Area of dark discoloration and pink scar tissue, present on admission. The 2 small areas that recently reopened have resolved. 8. Left buttock near ischial tuberosity: Area of red discoloration. The 3 small areas that were open resolved. 9. Left posterior heel: Bulla, present on admission. 10. Left lateral neck: Wound, present on admission. 11. Right lateral neck: Large, gaping wound, present on admission. 12. Right upper extremity: 4+ pitting edema, with small-moderate serosanguineous drainage, and multiple areas of ecchymosis, present on admission. 13. Left upper extremity: 2+ pitting edema, and multiple areas of ecchymosis, present on admission. Current % PO N/A on EN support NEW Estimated Energy Expenditure (kcals/day) 8200-4613 kcal/day (30-35 kcal/kg CBW for wound healing, CA) NEW Estimated Protein Required (g/day) 43-108 gm/day (0.8-2 gm/kg CBW for renal Dz predialysis, wound healing, CA) Estimated Fluid Required (l/day) Per MD (renal Dz) Problem/Etiology/Signs/Symptoms Increased nutritional needs related to metabolic demands as evidenced by estimated calorie and protein needs for sepsis and wound healing. *ongoing Expected Outcomes/Goals Monitor tolerance to EN support w/ goal of pt meeting at least 75% of estimated nutritional needs, labs trending WNL, normal GI function, skin integrity/wt maintenance. Dietitian Recommendations * Recommend Pivot 1.5 at 45 ml/hr, Free Water Flush: 200 ml Q4h via GT Provides: 1620 kcal/day, 101 gm protein/day, and 2020 ml free water/day Meets: 100% of lower end of estimated caloric needs and 94% of upper end of estimated protein needs * Consider MVI QD Follow Up High Risk: F/U in 2-3 days
--- NOTE | 2018-05-26 13:53 | NUR ---
Dietitian Recommendations * Recommend Pivot 1.5 at 45 ml/hr, Free Water Flush: 200 ml Q4h via GT Provides: 1620 kcal/day, 101 gm protein/day, and 2020 ml free water/day Meets: 100% of lower end of estimated caloric needs and 94% of upper end of estimated protein needs * Consider MVI QD LP, RD Please refer to Nutrition F/U for details.
--- NOTE | 2018-05-26 16:00 | NUR ---
Rounds: Patient laying in bed resting. Oral care provided. Patient suctioned and repositioned. Free flush of 200 ml given through G-tube, no residual. Isolation precautions in place. Safety precautions in place. No needs at this time. Will continue to monitor.
[2018-05-26 16:16] VITALS: BP_SYST 135
--- NOTE | 2018-05-26 18:44 | NUR ---
Closing Note: Patient laying in bed resting. Patient shows no signs of pain or discomfort. Breathing is even and unlabored on ventilator. Vent settings checked at bedside. Trach intact. Mid line patent and intact and saline locked. G-tube patent and intact running feeding @45 ml/hr per MD orders, no residual. Bailey catheter patent and intact with visible urine output. Wound dressings intact, dressing clean and dry. Safety precautions in place; bed in lowest position, wheels locked, side rails x3, bed alarm activated and call light within reach. All needs met. Will endorse plan of care to NOC, nurse.
--- NOTE | 2018-05-26 19:25 | NUR ---
OPENING NOTE Received report from Catherine. Patient resting in bed with eyes closed. Breathing unlabored and even, trach to vent. No signs of distress, no needs at this time. Daughter at the bedside. Fall, safety, contact, aspiration precautions in place. Bed in lowest position, brake on, alarm on, call light within reach. G-tube feeding running as ordered. Pillow support, heel boots in place. Will continue to monitor.
[2018-05-26 20:00] VITALS: BP_SYST 93
--- NOTE | 2018-05-26 20:35 | NUR ---
Patient's daughter asked about patient's eye drops. Informed her that they were not continued/reconciled. Received orders from Dr. Diaz to continue patient's eye drops. Explained to daughter that there is no pharmacy staff at night and the eyes drops will be continued tomorrow as ordered. Patient's daughter verbalized understanding. Orders input.
--- NOTE | 2018-05-26 20:56 | NUR ---
Med pass. Held amiodarone due to low BP. Will recheck BP later and administer if BP increases. Free water flush of 200cc via g-tube. Zero residual noted.
--- NOTE | 2018-05-26 22:27 | NUR ---
Administered amiodarone since BP increased.
--- NOTE | 2018-05-27 00:06 | NUR ---
Patient resting in bed with eyes closed. Breathing unlabored and even, trach to vent. No signs of distress, no needs at this time. Daughter at the bedside. Fall, safety, contact, aspiration precautions in place. Bed in lowest position, brake on, alarm on, call light within reach. G-tube feeding running as ordered. Pillow support, heel boots in place. Will continue to monitor.
[2018-05-27] MEDS: IPRATROPIUM/ALBUTEROL SULFATE 3 ML AMPUL.NEB (DUONEB) INH SCH ×4 (02:17→19:27)
[2018-05-27 03:28] VITALS: BP_SYST 144
--- NOTE | 2018-05-27 04:51 | NUR ---
RT at the bedside
--- NOTE | 2018-05-27 06:54 | NUR ---
CLOSING NOTE Endorsed cares to day shift nurse. Patient resting in bed with eyes closed. Breathing unlabored and even, trach to vent. No signs of distress, no needs at this time. Fall, safety, contact, aspiration precautions in place. Bed in lowest position, brake on, alarm on, call light within reach. G-tube feeding running as ordered. Pillow support, heel boots in place.
[2018-05-27] MEDS: COLISTIMETHATE SODIUM 150 MG VIAL INH SCH ×2 (07:41→19:28)
[2018-05-27 08:00] VITALS: BP_SYST 113
--- NOTE | 2018-05-27 08:00 | NUR ---
Opening Note Report received from [facility] shift nurse. Patient is able to open his eyes only otherwise he is no verbal. Trach is to vent with the following settings: AC 12, FiO2 40%, TV 450, peep 5. Isolation precautions are in place for [employer]/MDRO of sputum and wounds. G-tube is in place running Pivot 1.2@ 45. Bailey cath is in place draining yellow urine. Patient has several wounds around the neck with moderate amount of brownish drainage. RUE midline is in place and is saline locked. Left chest perm-a-cath is in place. Bed is in lowest position. Will continue to monitor.
[2018-05-27] MEDS: DORZOLAMIDE HCL/TIMOLOL MAL. 10 ML EYE DROPS (COSOPT) BOTH EYES SCH ×3 (09:00→21:00)
[2018-05-27] MEDS: AMIODARONE HCL 200 MG TABLET GT SCH ×2 (09:17→21:42)
[2018-05-27] MEDS: PANTOPRAZOLE GRANULES PACKET 40 MG GT SCH (09:17)
[2018-05-27] MEDS: HYDROCORTISONE SOD SUCC 100 MG/2 ML VIAL IVP SCH ×2 (09:17→17:30)
[2018-05-27] MEDS: ENOXAPARIN SODIUM 60 MG/0.6 ML SYRINGE SUBCUT SCH ×2 (09:18→21:44)
[2018-05-27] MEDS: BACITRACIN ZINC 15 GM TOPICAL OINTMENT TP SCH ×2 (09:18→21:00)
[2018-05-27] MEDS: BALSAM PERU/CASTOR OIL 60 GM OINT...G. TP SCH (09:18)
--- NOTE | 2018-05-27 10:20 | NUR ---
Rounds Patient was cleaned and turned. Tolerated well.
--- NOTE | 2018-05-27 11:00 | NUR ---
Wound Care Changed dressings on the back, sacrum, and left ankle. Cleansed all wounds with NS, venelex applied, and covered with foam dressing. G-tube dressing changed at this time as well. Patient tolerated well.
--- NOTE | 2018-05-27 11:49 | NUR ---
JOSE DC PLANNING: SUBACUTE UNIT UPDATE WITH STORM GARCIA/WALTER ABOUT POSSIBLE BED AT [facility] IN [place]. HELEN NOT SURE IF DTR IN AGREEMENT WITH THIS TRANSFER. WALTER TO F/UP WITH FACILITY TO ASCERTAIN IF A SUBACUTE BED IS AVAILABLE FOR TRANSFER TODAY.
--- NOTE | 2018-05-27 12:30 | NUR ---
Rounds Oral care and deep suction preformed on the patient. Patient tolerated well.
[2018-05-27 12:43] VITALS: BP_SYST 105
--- NOTE | 2018-05-27 14:48 | NUR ---
Rounds Patient is resting in bed. No signs of distress noted at the moment.
--- NOTE | 2018-05-27 16:20 | NUR ---
Tube feeding changed Tube feeding bag and tubing changed. Patient has not had any residuals throughout the shift.
[2018-05-27 17:18] VITALS: BP_SYST 111
--- NOTE | 2018-05-27 18:03 | NUR ---
Closing Note Bed is subacute is still pending. Isolation and aspiration precautions remain in place. RUE midline is in place. G-tube is running Pivot 1.5 @45. Trach is to vent with the following settings: AC12, Fio2 40%, TV 450, peep 5. Bailey cath is draining yellow urine. RUE is currently third spacing. Bed is in the lowest position. will endorse care to the oncoming nurse.
--- NOTE | 2018-05-27 19:45 | NUR ---
ROUNDS PATIENT IN BED, NOT IN DISTRESS, VITALS STABLE, NON VERBAL , WITH TRACH TO T-BAR, NO SIGNS OF ANY PAIN AT THIS TIME. ASSESSMENT DONE AND DOCUMENTED. SEE FLOWSHEET. NEEDS ATTENDED TO. TURNED AND REPOSITIONED AND MADE COMFORTABLE. SECRETIONS SUCTIONED. SAFETY PRECAUTIONS IN PLACED. WILL CONTINUE TO MONITOR.
[2018-05-27] MEDS: LATANOPROST 2.5 ML DROPS (XALATAN) BOTH EYES SCH (21:00)
--- NOTE | 2018-05-27 21:15 | NUR ---
MEDICATIONS DUE MEDICATIONS GIVEN ORDERED, TOLERATED WELL. WILL CONTINUE TO MONITOR.
[2018-05-27] MEDS: ACETAMINOPHEN 325 MG TABLET GT PRN (21:42)
[2018-05-27 23:51] VITALS: BP_SYST 112
--- NOTE | 2018-05-28 00:12 | NUR ---
PATIENT RESTING: Patient resting quietly. No acute distress noted. Vital signs within normal range.
[2018-05-28] MEDS: IPRATROPIUM/ALBUTEROL SULFATE 3 ML AMPUL.NEB (DUONEB) INH SCH ×4 (00:16→19:11)
--- NOTE | 2018-05-28 02:15 | NUR ---
PATIENT RESTING: Patient resting quietly. No acute distress noted. Vital signs within normal range.
--- NOTE | 2018-05-28 04:10 | NUR ---
ROUNDS PATIENT AWAKE, VITALS STABLE, MADE CLEAN AND COMFORTABLE. WILL CONTINUE TO MONITOR.
[2018-05-28] MEDS: HYDROCORTISONE SOD SUCC 100 MG/2 ML VIAL IVP SCH ×2 (05:01→17:50)
--- NOTE | 2018-05-28 06:55 | NUR ---
CLOSING NOTES PATIENT RESTING COMFORTABLY AT THIS TIME, ALL NEEDS ATTENDED TO, DUE MEDICATIONS GIVEN ORDERED. WILL ENDORSE TO INCOMING SHIFT NURSE.
[2018-05-28 07:30] VITALS: BP_SYST 132
[2018-05-28 07:32] LABS: BASOPHILS % (AUTO) 0.2 % (0.0-2.0); EOSINOPHILS # (AUTO) 0.1 K/uL (0.0-0.4); EOSINOPHILS % (AUTO) 0.4 % (0.0-4.0); HEMATOCRIT 27.2 % (36-54); HEMOGLOBIN 8.8 g/dL (14.0-18.0); LYMPHOCYTES # (AUTO) 0.3 K/uL (1.0-5.5); LYMPHOCYTES % (AUTO) 1.2 % (20.5-51.5); MEAN CORPUSCULAR HEMOGLOBIN 29 pg (27-31); MEAN CORPUSCULAR HGB CONC 32 % (32-36); MEAN CORPUSCULAR VOLUME 91 fL (79.0-98.0); MONOCYTES # (AUTO) 0.4 K/uL (0.0-1.0); MONOCYTES % (AUTO) 2.1 % (1.7-9.3); NEUTROPHILS # (AUTO) 20.2 K/uL (1.8-7.7); PLATELET COUNT (AUTO) 229 K/uL (130-430); RED BLOOD CELL COUNT(AUTO) 2.98 MIL/uL (4.2-6.2); RED CELL DISTRIBUTION WIDTH 19.4 % (9.0-15.0)
[2018-05-28 07:58] LABS: ALANINE AMINOTRANSFERASE 23 U/L (12-78); ALBUMIN 1.4 g/dL (3.4-4.8); ANION GAP 1 (5-15); ASPARTATE AMINOTRANSFERASE 15 U/L (10-37); CALCIUM 11.3 mg/dL (8.4-11.0); CHLORIDE 107 mmol/L (98-107); CREATININE 0.53 mg/dL (0.55-1.30); GLUCOSE 136 mg/dL (70-99); SODIUM SERUM 146 mmol/L (136-145); TOTAL BILIRUBIN 0.3 mg/dL (0.0-1.0); UREA NITROGEN, BLOOD 30 mg/dL (8-21)
[2018-05-28] MEDS: COLISTIMETHATE SODIUM 150 MG VIAL INH SCH ×2 (08:00→19:57)
--- NOTE | 2018-05-28 08:00 | NUR ---
AM NOTES Patient laying in bed resting. No s/s of distress, SOB, or pain. Left upper chest portocath intact, dressing is dry. Trach portex#7 attached to vent settings AC 12, FIO2 40, PEEP 5, TIDAL 450. Bed in lowest position, bed alarm on, call light within reach.
[2018-05-28 08:16] LABS: POTASSIUM 2.9 mmol/L (3.5-5.1)
[2018-05-28] MEDS ORDERED: POTASSIUM CHLORIDE 20 MEQ/PKT PACKET PO ONE (09:15)
[2018-05-28] MEDS: BACITRACIN ZINC 15 GM TOPICAL OINTMENT TP SCH ×2 (09:43→21:19)
[2018-05-28] MEDS: AMIODARONE HCL 200 MG TABLET GT SCH ×2 (09:43→21:17)
[2018-05-28] MEDS: DORZOLAMIDE HCL/TIMOLOL MAL. 10 ML EYE DROPS (COSOPT) BOTH EYES SCH ×3 (09:43→21:18)
[2018-05-28] MEDS: PANTOPRAZOLE GRANULES PACKET 40 MG GT SCH (09:43)
[2018-05-28] MEDS: BALSAM PERU/CASTOR OIL 60 GM OINT...G. TP SCH (09:44)
[2018-05-28] MEDS: ENOXAPARIN SODIUM 60 MG/0.6 ML SYRINGE SUBCUT SCH ×2 (09:46→21:28)
[2018-05-28 10:25] LABS: NEUTROPHILS % (AUTO) 96.1 % (40.0-70.0)
[2018-05-28 11:05] VITALS: BP_SYST 112
--- NOTE | 2018-05-28 12:39 | NUR ---
SPOKE WITH DTR ZAKIA Regarding patients discharge status. Daughter states she wants to be present at bedside when patient gets d/c. Will update dtr for any updates.
--- NOTE | 2018-05-28 13:00 | NUR ---
ROUNDS Patient laying in bed resting. No s/s of distress or SOB. All needs being met. Bed in lowest position, call light within reach. Trach attached to vent, settings running as ordered. Gtube running well, HOB elevated. Bailey catheter patent, clear yellow urine draining to gravity. Patient turned, Free water administered. Will cont. to monitor.
--- NOTE | 2018-05-28 15:00 | NUR ---
PICC LINE DRESSING CHANGE Aseptic technique used. No s/s of infection or redness. Next dressing change 06/04/18.
--- NOTE | 2018-05-28 15:30 | NUR ---
WOUND CARE/INCONTINENCE CARE Wound care done. Dressings clean, dry, intact. Incontinence care done. Linen and gown changed. Patient turned. Bed in lowest position, call light within reach, HOB elevated, feeding changed and running well.
[2018-05-28 16:44] VITALS: BP_SYST 114
--- NOTE | 2018-05-28 18:23 | NUR ---
CLOSING NOTES Patient laying in bed resting. No s/s of distress or SOB. All needs met throughout shift. PICC line site patent, intact, dressing intact. Gtube site dressing dry, feeding running well. Trach attached to [facility] vent, settings AC12, TIDAL 450, FIO2 40, PEEP 5. Safety and contact precautions maintained throughout shift. Bed in lowest position, call light within reach. Family at bedside. Will endorse to oncoming RN.
--- NOTE | 2018-05-28 18:30 | NUR ---
SUBACUTE FACILITY CHOICES Spoke with CLAIRE Griffin regarding her desired choices regarding subacute placement. DTR says she has already been in touch with these facilities. Will endorse information to oncoming RN to inform CM in the AM. #1. [facility] [phone] #2. [facility] ([place] [phone] #3. [facility] (Family is unaware of name) [phone]
[2018-05-28 20:10] VITALS: BP_SYST 100
--- NOTE | 2018-05-28 20:10 | NUR ---
Opening notes Pt asleep, opens eyes. No s/s distress noted. Vent setting FiO2 40 PEEP 5 Rate 12 TV 450. Pt R. eye swollen. R. upper arm midline 2 lumen dressing C/D/I, bruising noted and weeping. GT feeding no residual noted, Pivot running at 45ml/hr. Neck dressings intact. L. portacath drsg C/D/I. Bailey cath to gravity intact and secured noted with clear, yellow urine. Sacral dressing and L. heel dressings C/D/I. Huey heel boots in place. Pt on low air loss mattress. Will continue to monitor pt.
--- NOTE | 2018-05-28 21:15 | NUR ---
Rounds/Oral care Pt asleep, opens eyes. Oral care/suction provided. HOB maintained elevated. Pt tolerated well. To monitor.
[2018-05-28] MEDS: LATANOPROST 2.5 ML DROPS (XALATAN) BOTH EYES SCH (21:39)
--- NOTE | 2018-05-29 00:30 | NUR ---
Rounds/Oral care Pt awake, eyes open. Oral/nasal suction care provided, noted large amount of thin light yellow secretion. Pt tolerated well. HOB maintained above 30 degrees. Neck dressing intact. GT water flushes 200ml administered as ordered. Bailey cath to gravity with clear yellow urine. Will continue to monitor.
[2018-05-29] MEDS: IPRATROPIUM/ALBUTEROL SULFATE 3 ML AMPUL.NEB (DUONEB) INH SCH ×4 (01:10→19:58)
[2018-05-29 01:24] VITALS: BP_SYST 99
--- NOTE | 2018-05-29 04:10 | NUR ---
Rounds Pt asleep, easily arousable. No s/s distress noted. Water flush 200ml given as ordered. Oral care provided. HOB maintained elevated. No changes in Mech vent settings. To monitor.
[2018-05-29] MEDS: ACETAMINOPHEN 325 MG TABLET GT PRN ×2 (05:11→19:43)
--- NOTE | 2018-05-29 05:15 | NUR ---
Neck wound care Pt asleep, easily arousable, opens eyes. Neck wound dressing changed. Pre-medicated with Tylenol x2 tabs as needed prior to wound care. R. lateral neck removed old packing, cleansed with NS, applied Venelex cream and packed lightly with Iodifoam packing and covered with foam dressing. Left lateral neck and trache site cleansed with NS applied Venelex cream and applied foam dressing. Noted yellow and white slough, with some bleeding. Pt tolerated well satting at 94%. To monitor. Addendum: 05/29/18 at 0557 by Latasha Vitale RN Right hand skin tear dressing changed, noted old dry blood.
--- NOTE | 2018-05-29 06:20 | NUR ---
Closing notes Pt asleep. No s/s distress noted. No change in Mech vent settings. HOB maintained elevated. GT feeding Pivot infusing at 45ml/hr, water flush given as ordered. Pt had a bowel mvmt this AM. KAYLEY midline dressing C/D/I, flushes well and capped. Bailey cath to gravity with clear, yellow urine. Contact isolation maintained. Pt on low air loss mattress. To endorse to AM nurse.
[2018-05-29] MEDS: HYDROCORTISONE SOD SUCC 100 MG/2 ML VIAL IVP SCH ×2 (06:21→17:37)
[2018-05-29 07:09] LABS: CALCIUM 11.6 mg/dL (8.4-11.0); CHLORIDE 109 mmol/L (98-107); GLUCOSE 110 mg/dL (70-99); POTASSIUM 3.2 mmol/L (3.5-5.1); SODIUM SERUM 145 mmol/L (136-145); UREA NITROGEN, BLOOD 32 mg/dL (8-21)
[2018-05-29 07:26] LABS: ANION GAP < 3 (5-15)
[2018-05-29 07:33] LABS: HEMATOCRIT 26.3 % (36-54); HEMOGLOBIN 8.5 g/dL (14.0-18.0); MEAN CORPUSCULAR HEMOGLOBIN 30 pg (27-31); MEAN CORPUSCULAR HGB CONC 32 % (32-36); MEAN CORPUSCULAR VOLUME 91 fL (79.0-98.0); PLATELET COUNT (AUTO) 247 K/uL (130-430); RED BLOOD CELL COUNT(AUTO) 2.89 MIL/uL (4.2-6.2); RED CELL DISTRIBUTION WIDTH 19.7 % (9.0-15.0)
--- NOTE | 2018-05-29 07:45 | NUR ---
Initial notes: Patient awake and non verbal. On isolation precaution. Stable. on [facility] vent setting TV 450 F102 40% AC 12 Peep 5. Gtube in placed and running Pivot 1.5 @45 cc/hr. Safety measures in placed. Heel protector in placed. Received report at bedside. Addendum: 05/29/18 at 0754 by Marielena Petit RN PICC line KAYLEY in placed and infusing well. L chest portacath in placed.
[2018-05-29 07:54] LABS: WHITE BLOOD COUNT (AUTO) 22.5 K/uL (4.8-10.8)
[2018-05-29 08:00] VITALS: BP_SYST 103
[2018-05-29] MEDS: COLISTIMETHATE SODIUM 150 MG VIAL INH SCH ×2 (08:01→20:32)
[2018-05-29] MEDS: AMIODARONE HCL 200 MG TABLET GT SCH (09:00)
[2018-05-29] MEDS ORDERED: POTASSIUM CHLORIDE 20 MEQ/PKT PACKET PO ONE (09:15)
[2018-05-29] MEDS: PANTOPRAZOLE GRANULES PACKET 40 MG GT SCH (09:23)
[2018-05-29] MEDS: ENOXAPARIN SODIUM 60 MG/0.6 ML SYRINGE SUBCUT SCH ×2 (09:25→22:24)
[2018-05-29] MEDS: DORZOLAMIDE HCL/TIMOLOL MAL. 10 ML EYE DROPS (COSOPT) BOTH EYES SCH ×3 (09:28→22:25)
[2018-05-29] MEDS: BACITRACIN ZINC 15 GM TOPICAL OINTMENT TP SCH ×2 (09:28→21:00)
[2018-05-29] MEDS: BALSAM PERU/CASTOR OIL 60 GM OINT...G. TP SCH (09:29)
[2018-05-29 09:36] VITALS: BP_SYST 98
--- NOTE | 2018-05-29 09:54 | NUR ---
Decreased BP: Informed Dr. Gomes of decreased BP with new order.
[2018-05-29] MEDS ORDERED: NS 500 ML IV ONE (10:45)
[2018-05-29 10:51] LABS: ATYPICAL LYMPHOCYTES % 0 % (0-0); BAND % (MANUAL) 5 % (0-6); BASOPHILS % (MANUAL) 0 % (0-2); EOSINOPHILS % (MANUAL) 0 % (0-7); LYMPHOCYTES % (MANUAL) 3 % (20-46); MONOCYTES % (MANUAL) 3 % (0-11)
--- NOTE | 2018-05-29 10:58 | NUR ---
Nutrition F/U Admitting Diagnosis Pneumonia, Sepsis Reviewed Pertinent Medical/Surgical Hx Medical Record Patient Medical History Comment: PMH: H/O head and neck cancer, S/P radiation, chemo, S/P tach, S/P chemo and radiation, H/O GT placement for dysphagia, H/O COPD per MD notes. Pt found w/: LOC, shortness of breath, Bilateral Infiltrates, Leukocytosis, ARF, Hypercalcemia, Hypernatremia, anemia per MD notes. 05/28/18 MD Progress Notes: septic shock, acute respiratory failure, acinobacter pneumonia, advanced head and neck CA Subjective Information Pt seen resting in bed at time of RD visit. TF Pivot 1.5 seen hung but not infusing. RD attempted to call pt's RN at [phone], but no answer. TF may be held d/t pt's low BP? As documented in nursing notes 0954. Per MD orders, plans for D/C to subacute if ok w/ pulmonary. Per EMR, TF Intakes: 540 ml 05/29/18. Residuals: 20 ml 05/28/18. Last BM x1 05/29/18. Current TF regimen remains adequate/appropriate. Current Diet Order/Nutrition Support Pivot 1.5 at 45 ml/hr, Free Water Flush: 200 ml Q4h via GT x3 days Patient/Significant Other Unable To Verbalize Education Provided Not Indicated Pertinent Medications solu-cortef, protonix Pertinent Labs K 3.2 L, BG 110 H, BUN 32 H, ALB 1.4 L, H/H 8.5 L/26.3 L, WBC 22.5 H Height (Feet) 5 feet Height (Inches) 0.00 inches Weight (Pounds) 120 pounds (05/16/18) Weight (Calculated Kilograms) 54.602350 kilograms Patient Weight 54.431 kg Body Mass Index 23.43 kg/m2 %IBW 120 [place]/Adjusted Body Weight 100 lb, 45 kg Weight Status Appropriate Difficulty With: Swallowing Food Allergies unknown Usual Diet At Home Jevity 1.5 at 50ml x 20 hrs, Prostat QD, FWF 20ml Q1hr via GT per hard chart Skin Integrity Comment: Dustin scale: 11; per [employer] Inspector note 05/25/18: 1. Sacral coccygeal area: Unstageable pressure ulcer, present on admission. 2. Lower thoracic spine, superior wound: Unstageable pressure ulcer, present on admission. 3. Lower thoracic spine, middle wound: Unstageable pressure ulcer, present on admission. 4. Lower thoracic spine, inferior wound: Unstageable pressure ulcer, present on admission. 5. Right posterior and lateral trunk: Area of 100% light brown discoloration, present on admission. 6. Mid thoracic spine, superior to wound 2: Area of blanchable red discoloration, present on admission. 7. Left lateral hip: Area of dark discoloration and pink scar tissue, present on admission. The 2 small areas that recently reopened have resolved. 8. Left buttock near ischial tuberosity: Area of red discoloration. The 3 small areas that were open resolved. 9. Left posterior heel: [place], present on admission. 10. Left lateral neck: Wound, present on admission. 11. Right lateral neck: Large, gaping wound, present on admission. 12. Right upper extremity: 4+ pitting edema, with small-moderate serosanguineous drainage, and multiple areas of ecchymosis, present on admission. 13. Left upper extremity: 2+ pitting edema, and multiple areas of ecchymosis, present on admission. Current % PO N/A on EN support Estimated Energy Expenditure (kcals/day) 3320-2348 kcal/day (30-35 kcal/kg CBW for wound healing, CA) NEW Estimated Protein Required (g/day) 43-108 gm/day (0.8-2 gm/kg CBW for renal Dz predialysis, wound healing, CA) Estimated Fluid Required (l/day) Per MD (renal Dz) Problem/Etiology/Signs/Symptoms Increased nutritional needs related to metabolic demands as evidenced by estimated calorie and protein needs for sepsis and wound healing. *ongoing Expected Outcomes/Goals Monitor tolerance to EN support w/ goal of pt meeting at least 75% of estimated nutritional needs, labs trending WNL, normal GI function, skin integrity/wt maintenance. Dietitian Recommendations * Recommend Pivot 1.5 at 45 ml/hr, Free Water Flush: 200 ml Q4h via GT Provides: 1620 kcal/day, 101 gm protein/day, and 2020 ml free water/day Meets: 100% of lower end of estimated caloric needs and 94% of upper end of estimated protein needs * Consider MVI QD Follow Up High Risk: F/U in 2-3 days Addendum: 05/29/18 at [address] CORRECTION: Follow Up Moderate Risk: F/U in 3-5 days
--- NOTE | 2018-05-29 11:32 | NUR ---
rounds: patient eyes closed. stable. family at bedside.
[2018-05-29 12:35] VITALS: BP_SYST 107
--- NOTE | 2018-05-29 14:56 | NUR ---
rounds: Patient had a BM x2. Changed and repositioned.
[2018-05-29 16:11] VITALS: BP_SYST 122
--- NOTE | 2018-05-29 16:47 | NUR ---
rounds: patient sleeping. stable. no distress noted.
--- NOTE | 2018-05-29 18:44 | NUR ---
Closing notes: Patient on bed sleeping. Stable. Hook on mech vent with same setting. Needs attended. Gtube in placed. Bailey cath draining well by gravity. BLE with heel protector in placed. Safety measures in placed. Report will be given to car shifter.
--- NOTE | 2018-05-29 19:40 | NUR ---
ROUNDS PATIENT IN BED, NOT IN DISTRESS, VITALS STABLE, ON MECHANICAL VENT, NON VERBAL. ASSESSMENT DONE AND DOCUMENTED. SEE FLOWSHEET. NEEDS ATTENDED TO. TURNED AND REPOSITIONED AND MADE COMFORTABLE. SECRETIONS SUCTIONED. SAFETY AND FALL PRECAUTION MEASURES IN PLACED. BED IN LOW AND LOCKED POSITION. FAMILY AT THE BEDSIDE. WILL CONTINUE TO MONITOR.
[2018-05-29] MEDS: LATANOPROST 2.5 ML DROPS (XALATAN) BOTH EYES SCH (22:24)
--- NOTE | 2018-05-29 22:33 | NUR ---
PAGED PAGED JEWELRY APPRAISER PHYSICIAN IN REGARDS TO ORDERS, DR. NAJERA @ [phone], SPOKE WITH CHICA.
--- NOTE | 2018-05-29 22:40 | NUR ---
NOTES PAGED DR. NAJERA, CRAB STEAMER FOR TONGRICEL, PATIENT'S DAUGHTER WANTS ANTI ANXIETY MEDICATION FOR HER FATHER SAYING THAT HE SEEMS ANXIOUS AT THIS TIME, VITALS, BP-115/65, P-71, R-17, T-97.8, O2 SAT-97%. WILL CONTINUE TO MONITOR.
--- NOTE | 2018-05-30 00:16 | NUR ---
PATIENT RESTING: Patient resting quietly. No acute distress noted. Vital signs within normal range.
[2018-05-30 01:00] VITALS: BP_SYST 125
[2018-05-30] MEDS: IPRATROPIUM/ALBUTEROL SULFATE 3 ML AMPUL.NEB (DUONEB) INH SCH ×3 (01:41→20:12)
--- NOTE | 2018-05-30 02:14 | NUR ---
ROUNDS PATIENT ASLEEP, NOT IN DISTRESS, VITALS STABLE. WILL CONTINUE TO MONITOR.
--- NOTE | 2018-05-30 04:10 | NUR ---
PATIENT RESTING: Patient resting quietly. No acute distress noted. Vital signs within normal range.
[2018-05-30] MEDS: HYDROCORTISONE SOD SUCC 100 MG/2 ML VIAL IVP SCH (05:46)
[2018-05-30 06:33] LABS: BASOPHILS % (AUTO) 0.2 % (0.0-2.0); EOSINOPHILS # (AUTO) 0.1 K/uL (0.0-0.4); EOSINOPHILS % (AUTO) 0.3 % (0.0-4.0); HEMATOCRIT 24.9 % (36-54); HEMOGLOBIN 7.7 g/dL (14.0-18.0); LYMPHOCYTES # (AUTO) 0.3 K/uL (1.0-5.5); LYMPHOCYTES % (AUTO) 1.4 % (20.5-51.5); MEAN CORPUSCULAR HEMOGLOBIN 28 pg (27-31); MEAN CORPUSCULAR HGB CONC 31 % (32-36); MEAN CORPUSCULAR VOLUME 91 fL (79.0-98.0); MONOCYTES # (AUTO) 0.4 K/uL (0.0-1.0); MONOCYTES % (AUTO) 1.9 % (1.7-9.3); NEUTROPHILS # (AUTO) 20.8 K/uL (1.8-7.7); PLATELET COUNT (AUTO) 259 K/uL (130-430); RED BLOOD CELL COUNT(AUTO) 2.73 MIL/uL (4.2-6.2); RED CELL DISTRIBUTION WIDTH 19.5 % (9.0-15.0); WHITE BLOOD COUNT (AUTO) 21.6 K/uL (4.8-10.8)
--- NOTE | 2018-05-30 06:50 | NUR ---
CLOSING NOTES PATIENT RESTING COMFORTABLY IN BED, VITALS STABLE, NO SIGNS OF ANY PAIN AND DISCOMFORT NOTED. ALL NEEDS ATTENDED TO. SAFETY MEASURES MAINTAINED. WILL ENDORSE TO INCOMING SHIFT NURSE.
[2018-05-30 07:01] LABS: ANION GAP 4 (5-15); CALCIUM 11.4 mg/dL (8.4-11.0); CHLORIDE 111 mmol/L (98-107); CREATININE 0.43 mg/dL (0.55-1.30); GLUCOSE 106 mg/dL (70-99); POTASSIUM 3.3 mmol/L (3.5-5.1); SODIUM SERUM 149 mmol/L (136-145); UREA NITROGEN, BLOOD 30 mg/dL (8-21)
--- NOTE | 2018-05-30 07:50 | NUR ---
INITIAL NOTE RECEIVED PATIENT FROM VALUE ANALYSIS COORDINATOR. PATIENT AWAKE. NONVERBAL. CONFUSED; UNABLE TO MAKE NEEDS KNOWN. CONT ON TRACH TO VENT; WIN VENT SETTING ORDERED. HOB UP. GTUBE INTACT AND PATENT. WITH RESIDUAL OF 10CC NOTED. WIN GTF ORDERED. PICC LINE NOTED TO RIGHT UPPER ARM. SKIN WARM AND DRY TO TOUCH. BED IN LOW AND LOCKED POSITION. SIDERAIL UPX3. BED ALARM ON. BILAT HEEL PROTECTORS ON. ALL NEEDS MET. CALL LIGHT IN REACH. CONT TO MONITOR
[2018-05-30 08:00] VITALS: BP_SYST 141
[2018-05-30 08:11] LABS: NEUTROPHILS % (AUTO) 96.2 % (40.0-70.0)
[2018-05-30] MEDS: COLISTIMETHATE SODIUM 150 MG VIAL INH SCH ×2 (08:13→20:12)
[2018-05-30] MEDS ORDERED: PAMIDRONATE DISODIUM 90 MG in NS 500 ML IV ONE (08:15)
[2018-05-30] MEDS: AMIODARONE HCL 200 MG TABLET GT SCH (09:17)
[2018-05-30] MEDS: DORZOLAMIDE HCL/TIMOLOL MAL. 10 ML EYE DROPS (COSOPT) BOTH EYES SCH ×3 (09:18→21:55)
[2018-05-30] MEDS: BACITRACIN ZINC 15 GM TOPICAL OINTMENT TP SCH ×2 (09:18→22:09)
[2018-05-30] MEDS: PANTOPRAZOLE GRANULES PACKET 40 MG GT SCH (09:18)
[2018-05-30] MEDS: BALSAM PERU/CASTOR OIL 60 GM OINT...G. TP SCH (09:19)
[2018-05-30] MEDS: ENOXAPARIN SODIUM 60 MG/0.6 ML SYRINGE SUBCUT SCH ×2 (09:22→21:57)
--- NOTE | 2018-05-30 09:30 | NUR ---
NOTE ASSISTED INFRASTRUCTURE DESIGN ENGINEER WITH INCONTINENCE CARE, WIN WELL. ALL DUE MEDS ADMINISTERED ORDERED, WIN WELL. REPOSITIONED FOR COMFORT. HOB UP. ALL NEEDS MET. CONT TO MONITOR
[2018-05-30] MEDS ORDERED: POTASSIUM CHLORIDE 20 MEQ/PKT PACKET PO ONE (09:45)
--- NOTE | 2018-05-30 09:45 | NUR ---
SEEN AND EXAMINED BY AT BEDSIDE. CONT TO MONITOR
[2018-05-30] MEDS: POTASSIUM CHLORIDE 10 MEQ in D5W 1,000 ML IV SCH (10:41)
--- NOTE | 2018-05-30 10:45 | NUR ---
KCL ADMINISTERED KCL ORDERED AND HUNG IV D5W+10MEQ IVF; WIN WELL. HOB UP. NO ACUTE DISTRESS. ALL NEEDS MET. CONT TO MONITOR.
--- NOTE | 2018-05-30 12:10 | NUR ---
NOTE REPOSITIONED FOR COMFORT. HOB UP. WIN GTF AND WIN VENT ORDERED. ALL NEEDS MET. CONT TO MONITOR WITH FREQUENT VISUAL CHECK
[2018-05-30 12:15] VITALS: BP_SYST 124
--- NOTE | 2018-05-30 14:15 | NUR ---
NOTE TECHNOLOGY INTEGRATION SPECIALIST PROVIDED INCONTINENCE CARE, WIN WELL. REPOSITIONED FOR COMFORT. HOB UP. WIN GTF ORDERED. NO N/V. WIN VENT. ALL NEEDS MET. CONT TO MONITOR
--- NOTE | 2018-05-30 16:00 | NUR ---
NOTE PATIENT RESTING IN BED. REPOSITIONED FOR COMFORT, WIN WELL. NO ACUTE DISTRESS. NO SOB. HOB UP. ALL NEEDS MET. CONT TO MONITOR
[2018-05-30 16:05] VITALS: BP_SYST 155
[2018-05-30] MEDS: ACETAMINOPHEN 325 MG TABLET GT PRN ×2 (17:24→21:53)
--- NOTE | 2018-05-30 17:40 | NUR ---
WOUND CARE WOUND CARE PROVIDED, WIN WELL. TYLENOL ADMINISTERED PRIOR, WIN WELL. REPOSITIONED FOR COMFORT. ALL NEEDS MET. CALL LIGHT IN REACH. CONT TO MONITOR.
--- NOTE | 2018-05-30 18:23 | NUR ---
CLOSING NOTE PATIENT AWAKE IN BED. HOB UP. GTUBE INTACT AND PATENT; 0 RESIDUAL NOTED. WIN GTUBE FEEDING. TRACH INTACT AND PATENT; WIN VENT SETTING ORDERED. PICC LINE INTACT AND PATENT; WIN IVF ORDERED. POWELL CATH INTACT AND PATENT DRAINING CLEAR YELLOW URINE. ALL NEEDS ANTICIPATED AND MET BY STAFF. DAUGHTER AT BEDSIDE. CONT TO MONITOR WITH FREQUENT VISUAL CHECKS. AWAITING ON PLACEMENT. WILL ENDORSE TO ONCOMING SHIFT
[2018-05-30 20:00] VITALS: BP_SYST 167
--- NOTE | 2018-05-30 20:00 | NUR ---
INITIAL NOTES: PATIENT IN BED AWAKE , NON VERBAL , BLINKING EYES,MOVES RIGHT HAND SLOWLY. ON A VENT VIA TRACHE. SEE VENT SETTINGS. RIGHT ARM OZZING WITH YELLOWISH DRAINAGE. RT.FACIAL SWELLING. HAS MULTIPLE WOUNDS. IVF INFUSING AT 40ML/HR VIA RT.UPPER ARM MID LINE PICC.RAUL CATH TO LEFT UPPER CHEST SALINE LOCK.LLE CONTRACTED. DAUGHTER AT BEDSIDE. TURNED TO SIDE.SINUS RHYTHM. WILL MONITOR CLOSELY.TOLERATING FEEDING WELL.
[2018-05-30] MEDS: LATANOPROST 2.5 ML DROPS (XALATAN) BOTH EYES SCH (21:00)
--- NOTE | 2018-05-30 22:00 | NUR ---
DUE MEDS GIVEN. ORAL CARE AND SUCTIONING DONE.
--- NOTE | 2018-05-31 00:10 | NUR ---
TURNED TO SIDE. ON SAME VENT SETTINGS.
[2018-05-31 01:12] VITALS: BP_SYST 145
[2018-05-31] MEDS: IPRATROPIUM/ALBUTEROL SULFATE 3 ML AMPUL.NEB (DUONEB) INH SCH ×4 (01:48→20:11)
--- NOTE | 2018-05-31 02:10 | NUR ---
RIGHT NECK WOUND DRESSINGS CHANGED. LEFT NECK DRESSING NOT DONE STARTS TO BLEEDING. REINFORCE DRESSINGS.
--- NOTE | 2018-05-31 04:05 | NUR ---
PARTIAL BATH AND ORAL CARE DONE. TURNED. WITH SMEAR LOOSE STOOL.
[2018-05-31 05:43] LABS: BASOPHILS % (AUTO) 0.1 % (0.0-2.0); EOSINOPHILS # (AUTO) 0.1 K/uL (0.0-0.4); EOSINOPHILS % (AUTO) 0.4 % (0.0-4.0); HEMATOCRIT 25.8 % (36-54); LYMPHOCYTES # (AUTO) 0.3 K/uL (1.0-5.5); LYMPHOCYTES % (AUTO) 1.6 % (20.5-51.5); MEAN CORPUSCULAR HEMOGLOBIN 28 pg (27-31); MEAN CORPUSCULAR HGB CONC 31 % (32-36); MEAN CORPUSCULAR VOLUME 91 fL (79.0-98.0); MONOCYTES # (AUTO) 0.3 K/uL (0.0-1.0); MONOCYTES % (AUTO) 1.6 % (1.7-9.3); NEUTROPHILS # (AUTO) 20.9 K/uL (1.8-7.7); NEUTROPHILS % (AUTO) 96.3 % (40.0-70.0); PLATELET COUNT (AUTO) 200 K/uL (130-430); RED BLOOD CELL COUNT(AUTO) 2.83 MIL/uL (4.2-6.2); RED CELL DISTRIBUTION WIDTH 19.5 % (9.0-15.0); WHITE BLOOD COUNT (AUTO) 21.6 K/uL (4.8-10.8)
--- NOTE | 2018-05-31 06:40 | NUR ---
CLOSING: HAD BEEN MOVING BOTH ARMS SLOWLY. RESIDUAL THIS AM 40ML. REFEED. ON SAME VENT SETTINGS. ALL NEEDS WERE ATTENDED.TOLERATING FEEDINGS,.NO ACUTE CARDIOPULMONARY DISTRESS. ON VENT DEPENDENT. WILL ENDORSED TO AM RN FOR CONTINUITY OF CARE.
[2018-05-31 06:48] LABS: ANION GAP -1 (5-15); CALCIUM 12.1 mg/dL (8.4-11.0); CHLORIDE 114 mmol/L (98-107); CREATININE 0.57 mg/dL (0.55-1.30); GLUCOSE 133 mg/dL (70-99); POTASSIUM 3.6 mmol/L (3.5-5.1); SODIUM SERUM 149 mmol/L (136-145); UREA NITROGEN, BLOOD 33 mg/dL (8-21)
[2018-05-31 08:00] VITALS: BP_SYST 122
--- NOTE | 2018-05-31 08:00 | NUR ---
AM NOTES IN BED, OPEN HIS EYES, NON VERBAL. NO ACUTE DISTRESS NOTED. TOLERATING VENT SETTINGS AT THIS TIME. IVF WITH KCL INFUSING WELL. ON GT FEEDING, RESIDUAL IS 5CC. SAFETY PRECAUTION OBSERVED. MAINTAIN ON CONTACT ISOLATION. WILL MONITOR.
[2018-05-31] MEDS: COLISTIMETHATE SODIUM 150 MG VIAL INH SCH ×2 (08:06→20:16)
--- NOTE | 2018-05-31 09:00 | NUR ---
NOTES- HAD SOFT BM. CLEANED AND REPOSITIONED. WOUND DRESSING DONE AT THE BACK AND ON THE LEFT HEEL. ORAL CARE DONE. PT PARTIALLY OPENED HIS MOUTH WHILE DOING MOUTH CARE.
[2018-05-31] MEDS: ENOXAPARIN SODIUM 60 MG/0.6 ML SYRINGE SUBCUT SCH ×2 (09:18→20:37)
[2018-05-31] MEDS: HYDROCORTISONE SOD SUCC 100 MG/2 ML VIAL IVP SCH (09:20)
[2018-05-31] MEDS: PANTOPRAZOLE GRANULES PACKET 40 MG GT SCH (09:20)
[2018-05-31] MEDS: AMIODARONE HCL 200 MG TABLET GT SCH (09:20)
[2018-05-31] MEDS: DORZOLAMIDE HCL/TIMOLOL MAL. 10 ML EYE DROPS (COSOPT) BOTH EYES SCH ×3 (09:21→20:37)
[2018-05-31] MEDS: BACITRACIN ZINC 15 GM TOPICAL OINTMENT TP SCH ×2 (09:22→20:36)
[2018-05-31] MEDS: BALSAM PERU/CASTOR OIL 60 GM OINT...G. TP SCH (09:22)
[2018-05-31] MEDS: POTASSIUM CHLORIDE 10 MEQ in D5W 1,000 ML IV SCH ×2 (09:45→14:13)
--- NOTE | 2018-05-31 12:00 | NUR ---
NOTES- ORAL CARE AND SUNCTIONING DONE. TURN AND REPOSITIONED. NO ACUTE DISTRESS NOTED.
[2018-05-31 12:25] VITALS: BP_SYST 108
--- NOTE | 2018-05-31 16:00 | NUR ---
NOTES- ORAL CARE DONE, TURN AND REPOSITIONED, AFEBRILE, TOLERATING FEEDING.
[2018-05-31 16:02] VITALS: BP_SYST 105
--- NOTE | 2018-05-31 18:34 | NUR ---
closing notes In bed, family at bedside. Pt is awake. no acute distress noted. no change in assessment.
[2018-05-31 20:00] VITALS: BP_SYST 95
--- NOTE | 2018-05-31 20:00 | NUR ---
Initial Notes Received patient resting in bed with eyes closed, family at bedside. Patient is confused and unable to follow simple commands. Patient appears in no acute distress or pain at this time. Vital signs stable. Breathing is even and unlabored on mech vent. Oral care and trach suctioning provided. IV site patent/clean/dry. Patient seems to be tolerating tube feeding, residual 5ml, HOB elevated. Bailey draining to gravity. Multiple wounds noted, dressing changed during prior shift. Needs addressed, repositioned patient for comfort. Attempted to educated patient regarding use of call light for assistance and fall precautions, patient unable. Fall precautions in place, will continue to monitor.
[2018-05-31] MEDS: LATANOPROST 2.5 ML DROPS (XALATAN) BOTH EYES SCH (20:38)
--- NOTE | 2018-05-31 22:00 | NUR ---
Nursing Notes Patient resting in bed with eyes closed, no change to mentation. Patient appears in no acute distress or pain at this time. Breathing is even and unlabored on mech vent. HOB elevated, francisco draining to gravity. Repositioned patient, partial linen change provided. Fall precautions in place, will continue to monitor.
[2018-05-31 23:36] VITALS: BP_SYST 95
--- NOTE | 2018-06-01 | NUR ---
Nursing Notes Patient resting in bed with eyes closed, no change to mentation. Patient in no acute distress, breathing is even and unlabored on mech vent. Oral care and trach suctioning provided. Free H2O given per MD order, HOB elevated. Bailey draining to gravity. IV site patent/clean/dry. Repositioned patient. Needs addressed. Fall precautions in place.
[2018-06-01] MEDS: IPRATROPIUM/ALBUTEROL SULFATE 3 ML AMPUL.NEB (DUONEB) INH SCH ×4 (00:48→20:15)
--- NOTE | 2018-06-01 02:00 | NUR ---
Nursing Notes Patient resting comfortably in bed. Breathing is even and unlabored on mech vent. IV site patent/clean/dry. Repositioned patient for comfort. HOB elevated. Bailey draining to gravity. Will continue to monitor.
[2018-06-01] MEDS: POTASSIUM CHLORIDE 10 MEQ in D5W 1,000 ML IV SCH (02:40)
--- NOTE | 2018-06-01 04:00 | NUR ---
Nursing Notes Patient resting in bed with eyes closed, easily aroused, no change to mentation. Patient appears in no acute distress or pain. Breathing is even and unlabored on mech vent. IV site patent/clean/dry. Bailey draining to gravity. Wound care provided to patient's neck wounds per wound care orders, patient tolerated well. Patient repositioned for comfort, HOB elevated. Will continue to monitor.
--- NOTE | 2018-06-01 06:43 | NUR ---
Closing Notes Patient resting in bed with eyes closed, easily aroused, no change to mentation. Patient appears in no acute distress or pain at this time. Breathing is even and unlabored on mech vent. IV site patent/clean/dry, no S/S infection/infiltration noted. Dressings remain clean/dry/intact. Bailey draining to gravity. HOB elevated. Needs addressed throughout shift. Fall precautions in place. Will continue to monitor for changes and safety, and endorse all patient care/needs to oncoming nurse.
[2018-06-01 07:01] LABS: ANION GAP 2 (5-15); CHLORIDE 110 mmol/L (98-107); CREATININE 0.52 mg/dL (0.55-1.30); GLUCOSE 132 mg/dL (70-99); POTASSIUM 3.7 mmol/L (3.5-5.1); SODIUM SERUM 148 mmol/L (136-145); UREA NITROGEN, BLOOD 29 mg/dL (8-21)
--- NOTE | 2018-06-01 07:35 | NUR ---
AM ROUNDS: ON CONTACT ISOLATION PRECAUTION RENDERED. REPORT GIVEN BY NIGHT NURSE WILBER.ON TRACH VENT,FIO2=40%.PATIENT RESTING. G-TUBE FEEDS ON GOING. WITH OPTI FOAM DRESSING ALL AROUND THE NECK.RIGHT UPPER ARM MIDLINE DRESSING CLEAN AND DRY.POWELL IN SITU.CONTINUE TO MONITOR. ON MODIFIED CODE.
--- NOTE | 2018-06-01 07:35 | NUR ---
ADDED NOTE: PATIENT EASY TO AROUSED BUT NON-VERBAL DUE TO TRACH VENT.
[2018-06-01 08:30] VITALS: BP_SYST 113
[2018-06-01] MEDS: HYDROCORTISONE SOD SUCC 100 MG/2 ML VIAL IVP SCH (09:29)
[2018-06-01] MEDS: AMIODARONE HCL 200 MG TABLET GT SCH (09:29)
[2018-06-01] MEDS: PANTOPRAZOLE GRANULES PACKET 40 MG GT SCH (09:29)
--- NOTE | 2018-06-01 09:30 | NUR ---
MEDS/G-TUBE: NO RESIDUALS PRIOR TO GIVING MEDS.CRUSHED MEDS GIVEN AND FLUSHED WITH WATER ORDERED.
[2018-06-01] MEDS: BACITRACIN ZINC 15 GM TOPICAL OINTMENT TP SCH ×2 (09:31→20:48)
[2018-06-01] MEDS: ENOXAPARIN SODIUM 60 MG/0.6 ML SYRINGE SUBCUT SCH ×2 (09:34→20:47)
[2018-06-01] MEDS: BALSAM PERU/CASTOR OIL 60 GM OINT...G. TP SCH (09:35)
[2018-06-01] MEDS: DORZOLAMIDE HCL/TIMOLOL MAL. 10 ML EYE DROPS (COSOPT) BOTH EYES SCH ×3 (09:35→20:48)
--- NOTE | 2018-06-01 11:05 | NUR ---
SUCTIONED SECRETIONS: OBTAINED LARGE AMOUNT OF ERVIN FROTHY SECRETIONS FROM THE MOUTH AND BILATERAL NOSTRILS.NOT IN ANY ACUTE DISTRESS THIS TIME.ON TRACH VENT.
[2018-06-01 11:27] VITALS: BP_SYST 97
--- NOTE | 2018-06-01 12:25 | NUR ---
RN ROUNDS: PATIENT SLEEPING DURING ROUNDS.OPENS EYES WHEN AROUSED BUT NO CHANGE IN CONDITION. CONTINUE WITH FI02=40%,TOLERATED BY THE PATIENT. G-TUBE FEEDS ON GOING. CONDITION GUARDED.
--- NOTE | 2018-06-01 13:35 | NUR ---
G-TUBE SITE: CLEANSE WITH NS G TUBE SITE,LEAKING AND PLACE OPTI FOAM. FLUSHED WITH WATER AND TOLERATED WELL.
--- NOTE | 2018-06-01 14:29 | NUR ---
DC PLANNING Called & spoke w Hari @ [place], ph [phone], still looking for placement for pt. Has been unable to find an Isolation bed.
--- NOTE | 2018-06-01 15:10 | NUR ---
RN ROUNDS: PATIENT TOLERATED VENT SETTINGS.UNLABORED.WITH GOOD SATURATION. CONTINUE TO MONITOR.
--- NOTE | 2018-06-01 16:31 | NUR ---
DC PLANNING Received call from Hari @ [place], ph [phone], pt accepted @ [facility] room 27A. She will place ambulance on will call & will call [facility] directly w information. Per Hari she called & informed pt's dtr & she agreed to transfer pt to [facility] today. I called & left msg w pt's dtr Gaby, ph [phone], to return call, left my direct ph & direct [facility] for her to call after 1630. Updated Nadine, charge nurse, she is calling MD for order. Addendum: 06/01/18 at 1652 by Jennifer Finney RN Spoke w dtr Gaby @ bedside, states is aware already of dc to [facility] today & is agreeable. Spoke w & updated pt's nurse Gisel. Transfer packet left in [facility] by Keira.
[2018-06-01 16:45] VITALS: BP_SYST 97
--- NOTE | 2018-06-01 17:30 | NUR ---
PHOTOS: PHOTOS TAKEN ON RIGHT/LEFT NECK WOUNDS,RIGHT HAND AND LEFT ARM SKIN TEARS.LEFT HIP HEALED WOUNDS,SACRAL WOUNDS AND MID BACK WOUNDS.LEFT HEEL WOUNDS WELL. CLEANSE WITH NS ONTO WOUND BED,BARRIER CREAM TO JR WOUND AREA AND COVERED WITH OPTI FOAM DRESSING TO APPLICABLE WOUNDS AND SACRAL OPTI FOAM GENTLE. Addendum: 06/06/18 at 1759 by Ailyn Lopez RN added notes:right hand skin tear dry,covered with opti foam gentle.left hip healed scar.
[2018-06-01] MEDS: ACETAMINOPHEN 325 MG TABLET GT PRN (18:14)
--- NOTE | 2018-06-01 18:48 | NUR ---
[facility] CALLED DERICK FAM AT [facility] TO FOLLOW UP ON IF OK TO SEND PT. Addendum: 06/01/18 at 1900 by Elsa Esparza CNA SPOKE WITH ROLO FROM [facility] AND SAID SHE IS CALLING THE AMBULANCE TO FIND OUT A TIME. AND WILL CALL ME BACK.
[2018-06-01] MEDS ORDERED: MORPHINE 4 MG/ML INJ. SYRINGE IVP ONE (19:00)
--- NOTE | 2018-06-01 19:21 | NUR ---
[facility] CALL[facility] ROLO CALLED FROM [facility] AND SHE SAID BILLIARD PARLOR MANAGER TIME WILL BE 013 WITH MED RESPONSE [phone]. NOTIFIED NIDHI
--- NOTE | 2018-06-01 19:30 | NUR ---
CLOSING NOTES: REPORT GIVEN TO NIGHT NURSE LAUREN.PATIENT AROUSED EASILY BUT NON VERBAL. NO CHANGE IN CONDITION.STILL WITH SAME VENT SETTINGS,FIO2=40%,GOOD SATURATION.G-TUBE FEEDS ON GOING. POWELL IN SITU. RIGHT UPPER MIDLINE INTACT.RIGHT ARM WEEPING,UNDERNEATH PADS APPLIED. DAUGHTER AWARE PATIENT WILL BE GRAPHIC SPECIALIST BY AMBULANCE AT 01:30AM 06-02-18 GOING TO SUB ACUTE [facility] ,IT NEEDS SEAM FINISHER TRANSPORT -VENT PATIENT. PRACTICE GUIDELINES MET THROUGH OUT SHIFT.
--- NOTE | 2018-06-01 19:35 | NUR ---
CHANGE OF SHIFT: pt. received report from nurse Maria, daughter at bedside. 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 pt. 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 pt. on a vent via trach with vent settings of 40 % FIO2 TV 450 PEEP 5 AC rate 12, with spontaneous breathing. side rails up, will reassess more later.
[2018-06-01 20:00] VITALS: BP_SYST 122
--- NOTE | 2018-06-01 20:30 | NUR ---
NOTES: pt. moving his left arm, but unable to follow commands. face swollen hugh. right side. IV infusing via midline on rt. upper arm. G tube feeding with Pivot 1.5 @ 45 cc/hr, checked with 5 cc residual. g tube site clean and intact. trach site reddened with dressing on both side of the neck with wounds. samantha cath needle taken out by charge nurse Neeru and small dressing applied, no bleeding noted on left upper chest. pt. on cardia monitor and shows sinus rhythm. sacral/lower/mid back wound unstageable with dressing. pt. had large amt of stool and kept clean and dry.repositioned, both legs elevated, on air mattress. call light at bedside, bed in low position.
[2018-06-01] MEDS: LATANOPROST 2.5 ML DROPS (XALATAN) BOTH EYES SCH (21:00)
[2018-06-01] MEDS ORDERED: DOXYCYCLINE HYCLATE 100 MG CAPSULE PO SCH (21:00)
--- NOTE | 2018-06-01 22:24 | NUR ---
NOTES: report given to nurse Tam in [facility].
--- NOTE | 2018-06-01 23:15 | NUR ---
NOTES: pt. sleeping when checked, O2 sat 88% suctioned orally and via trach, pt. awakened and able to grab on his left hand the tubing. rt. arm continuously weeping. noted g tube site slightly leaking. opens eyes on stimulation. rt. eye side pretty swollen.
--- NOTE | 2018-06-02 00:01 | NUR ---
NOTES: pt. cleaned and changed to orange gown. had another bowel movement. new dressing on sacral area applied.
[2018-06-02 00:14] VITALS: BP_SYST 98
--- NOTE | 2018-06-02 00:30 | NUR ---
NOTES: discharge instructions forms completed. pt. daughter aware of discharge. chart copied.
[2018-06-02 00:36] VITALS: BP_SYST 98
--- NOTE | 2018-06-02 01:30 | NUR ---
NOTES: report given to ACLS nurse via [facility].
--- NOTE | 2018-06-02 01:37 | NUR ---
NOTES: pt. awake, informed about the discharge. MS 2 mg IVP instead of 3 mg per daughter request as ordered prior to discharge. suctioned orally. IV lock midline cath, G tube clamped, noted leaking around site, gauze dressing applied with optifoam dressing. francisco intact to OSD. Both heel protectors in place. Addendum: 06/02/18 at 0154 by Kristine London RN pt. does not have any belongings.
--- NOTE | 2018-06-02 02:10 | NUR ---
pt. discharged via [facility] transport on the vent , in no acute distress. condition guarded.
== END 2018-06-02 02:10 | DRG 720 ==
LOC: SED 11:43 → SIC 13:01 → UNDODISIN 05-23 19:25 → STU 05-23 20:08
PROVIDERS: ADMIT Internal Medicine; ATTEND Internal Medicine
PROC: 5A1955Z Respiratory Ventilation, Greater than 96 Consecutive Hours (ICD-10-PCS; principal; 2018-05-14)
PROC: 02HV33Z Insertion of Infusion Device into Superior Vena Cava, Percutaneous Approach (ICD-10-PCS; 2018-05-14)
PROC: B548ZZA Ultrasonography of Superior Vena Cava, Guidance (ICD-10-PCS; 2018-05-14)
PROC: 30233N1 Transfusion of Nonautologous Red Blood Cells into Peripheral Vein, Percutaneous Approach (ICD-10-PCS; 2018-05-17)
PROC: 0D20XUZ Change Feeding Device in Upper Intestinal Tract, External Approach (ICD-10-PCS; 2018-05-20)
DX: A41.9 Sepsis, unspecified organism (principal); J96.21 Acute and chronic respiratory failure with hypoxia; E43 Unspecified severe protein-calorie malnutrition; R65.21 Severe sepsis with septic shock; K31.6 Fistula of stomach and duodenum; Z99.11 Dependence on respirator [ventilator] status; J15.6 Pneumonia due to other Gram-negative bacteria; N17.9 Acute kidney failure, unspecified; Z93.0 Tracheostomy status; C79.2 Secondary malignant neoplasm of skin; Z66 Do not resuscitate; I95.9 Hypotension, unspecified; E83.52 Hypercalcemia; E87.0 Hyperosmolality and hypernatremia; I48.0 Paroxysmal atrial fibrillation; I50.9 Heart failure, unspecified; D63.8 Anemia in other chronic diseases classified elsewhere; C14.0 Malignant neoplasm of pharynx, unspecified; C76.0 Malignant neoplasm of head, face and neck; D63.0 Anemia in neoplastic disease; D64.89 Other specified anemias; I82.621 Acute embolism and thrombosis of deep veins of right upper extremity; J44.0 Chronic obstructive pulmonary disease with (acute) lower respiratory infection; K94.23 Gastrostomy malfunction; L03.221 Cellulitis of neck; Z68.23 Body mass index [BMI] 23.0-23.9, adult; Z92.21 Personal history of antineoplastic chemotherapy; Z92.3 Personal history of irradiation; Z88.1 Allergy status to other antibiotic agents; Z74.01 Bed confinement status
CPT/HCPCS: 36415; 36600; 71045; 74018; 74240-TC; 80048; 80053; 80202-TC; 81003; 82150-TC; 82550-TC; 82803-TC; 83540-TC; 83550-TC; 83605; 83690-TC; 83735-TC; 83880; 84484; 85007; 85025; 85027; 85610-TC; 85730-TC; 86886; 86900; 86901; 86920; 87040-TC; 87070-TC; 87081; 87186-TC; 87205-TC; 93005; 93971; 94002; 94003; 94640; 94760; 96365; 96366; 96367; 99291; A6209; C1751; C1769; G0378; J0770; J1450; J1650; J1720; J1940; J2270; J2405; J2430; J2543; J3370; J3480; J3490; J7030; J7040; J7050; J7060; J7620; P9021; Q9964